=== PATIENT | female | born 1950 | race American Indian/Alaskan Native ===

== ENCOUNTER 2017-03-11 18:41 | Emergency (ER) | payer OTHER ==
[2017-03-11 19:00] VITALS: BP 130/67
[2017-03-11] MEDS ORDERED: Ketorolac 30 MG/ML SDV IM ONE (19:48)
[2017-03-11] MEDS ORDERED: Acetaminophen 325 MG Tab PO ONE (20:13)
[2017-03-11] MEDS ORDERED: Bacitracin Oint 1 GM U/D Packet TOP ONE (20:45)
--- NOTE | 2017-03-11 20:49 | EDM.PDOC ---
ED HPI Trauma - General Chief Complaint: Lower Extremity Injury/Pain Stated Complaint: FELL ON CONCRETE STAIRS,BLEEDING KNEES AND GREER Time Seen by Provider: 03/11/17 19:37 Source: Reports: Patient History Limitations: Reports: No limitations - History of Present Illness INITIAL COMMENTS - FREE TEXT/NARRATIVE: ED with c/o pain to bilateral knees and left greer. Notes catching heel in door at daughters apartment and fell over landing on to concrete. No other injury. did not hit head. Diabetic, not on insulin. On plavix for heart disease. Ambulatory after fall, Occurred When: just prior to arrival Occurred Where: other Method of Injury: fall Severity: moderate Pain/Injury Location: Reports: lower extremity, right, lower extremity, left Consciousness: Reports: no loss of consciousness Associated Symptoms: Reports: no other symptoms Allergies/ADRs: Allergies codeine Allergy (Verified 03/11/17 19:01) Hallucinations diphenhydramine HCl [From Benadryl] Allergy (Verified 03/11/17 19:01) Shaking Penicillins Allergy (Verified 03/11/17 19:01) Rash simvastatin [From Zocor] Allergy (Verified 03/11/17 19:01) Cannot Remember Ivp dye Allergy (Uncoded 07/12/16 15:18) Hives wool Allergy (Uncoded 07/12/16 15:18) Itching Home Medications: Ambulatory Orders Aspirin [Robi Chewable Aspirin] 81 mg PO DAILY 03/18/14 [Confirmed 03/11/17] Calcium Citrate/Vitamin D3 [Calcium Citrate - Vit D Caplet] 1 tab PO BID [Confirmed 03/11/17] Clopidogrel Bisulfate [Clopidogrel] 75 mg PO DAILY 03/18/14 [Confirmed 03/11/17] Insulin Detemir [Levemir] 40 units SQ BEDTIME 03/18/14 [Confirmed 07/12/16] Metformin Sitagliptin 500 mg PO BID 03/18/14 [Confirmed 03/11/17] Metoprolol Succinate [Toprol XL] 50 mg PO BID 03/18/14 [Confirmed 03/11/17] Ramipril [Altace] 5 mg PO DAILY 03/18/14 [Confirmed 03/11/17] Simvastatin [Zocor] 40 mg PO BEDTIME 03/18/14 [Confirmed 03/11/17] Travoprost (Benzalkonium) [Travoprost 0.004% Eye Drop] 1 drop EYEBOTH DAILY 09/21 [Confirmed 03/11/17] Fenofibrate,Micronized [Fenofibrate] 45 mg PO DAILY 03/13/15 [Confirmed 03/11/17 ] Furosemide [Lasix] 20 mg PO DAILY 03/13/15 [Confirmed 03/11/17] Multivitamin with Minerals [Multiple Vitamin] 1 tab PO DAILY 03/13/15 [ Confirmed 03/11/17] Potassium Chloride 10 meq PO DAILY 03/11/17 [Confirmed 03/11/17] Spironolactone [Aldactone] 25 mg PO DAILY 03/11/17 [Confirmed 03/11/17] Past Medical History HEENT History: Reports: Glaucoma, Impaired vision Other HEENT History: wears glasses Cardiovascular History: Reports: Afib, Angina, CAD, High cholesterol, Hypertension, [place] Respiratory History: Reports: None Gastrointestinal History: Reports: GERD Genitourinary History: Reports: None 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 Musculoskeletal History: Reports: None Neurological History: Reports: None Psychiatric History: Reports: None Endocrine/Metabolic History: Reports: Diabetes, type II, IDDM, Obesity/BMI 30+ Hematologic History: Reports: None Immunologic History: Reports: None Oncologic (Cancer) History: Reports: None Dermatologic History: Reports: None - Past Surgical History Cardiovascular Surgical History: Reports: AICD Social & Family History - Family History Family Medical History: Noncontributory - Tobacco Use Smoking Status *Q: Never Smoker Years of Tobacco use: 5 Used Tobacco, but Quit: Yes Month Tobacco Last Used: 0 Second Hand Smoke Exposure: No - Alcohol Use Days Per Week of Alcohol Use: 0 - Recreational Drug Use Recreational Drug Use: No - Living Situation & Occupation Living situation: Reports: with family Occupation: retired Review of Systems - Review of Systems Review Of Systems: ROS reveals no pertinent complaints other than HPI. Trauma Exam - Physical Exam Exam: See Below Exam Limited By: No limitations General Appearance: Reports: alert, mild distress Head: Reports: atraumatic, normocephalic Eyes: bilateral eye: EOMI, PERRL Ears: Reports: normal external exam, normal TMs Nose: Reports: normal inspection Throat/Mouth: Reports: Normal inspection Neck: Reports: non-tender, full range of motion Respiratory Exam: Reports: no respiratory distress Cardiovascular: Reports: normal peripheral pulses GI/Abdominal: Reports: normal bowel sounds, soft Back: Reports: full range of motion Extremities: Reports: normal range of motion, joint effusion, pain with movement , tenderness (bilateral knee), other (left anterior greer swollen and bruised). Denies: no evidence of injury Course - Vital Signs Last Recorded V/S: Last Vital Signs Temp 96.6 F 03/11/17 18:54 Pulse 85 03/11/17 18:54 Resp 18 03/11/17 18:54 BP 130/67 03/11/17 18:54 Pulse Ox 99 03/11/17 18:54 - Orders/Labs/Meds Meds: Medications Discontinued Medications Generic Name Dose Route Start Last Admin Trade Name Freq PRN Reason Stop Dose Admin Acetaminophen 650 mg 03/11/17 20:13 03/11/17 20:27 Tylenol PO 03/11/17 20:14 650 mg NOW ONE Administration Bacitracin 2 dose 03/11/17 20:45 03/11/17 21:20 Bacitracin Oint 1 Gm TOP 03/11/17 20:46 2 dose ONETIME ONE Administration Ketorolac Tromethamine 30 mg 03/11/17 19:48 03/11/17 21:16 Toradol IM 03/11/17 19:49 Not Given ONETIME ONE Departure - Departure Time of Disposition: 20:44 Disposition: Home, Self-Care 01 Condition: fair Clinical Impression: Fall (on) (from) other stairs and steps, initial encounter, Knee pain, bilateral, Contusion of knee, left, Abrasions of multiple sites, Diabetes, Traumatic hematoma of left lower leg Instructions: Knee Sprain, [id number], Knee Pain Forms: ED Department Discharge Additional Instructions: cleanse wounds daily with antibiotic soap bacitracin telfa dressing to wound until healed monitor for signs of infection, warmth redness drainage urgent follow up if infection noted recheck next week in clinitylenol 650 mg every 4-6 hours as needed for discomfort ice to bruised knees and left lower leg
== END 2017-03-11 21:25 | disposition home or self-care (01) ==
LOC: DL.ED 18:41
DX: S80.02XA Contusion of left knee, initial encounter (principal); E11.9 Type 2 diabetes mellitus without complications; S80.12XA Contusion of left lower leg, initial encounter; I25.10 Atherosclerotic heart disease of native coronary artery without angina pectoris; E78.00 Pure hypercholesterolemia, unspecified; I10 Essential (primary) hypertension; I25.2 Old myocardial infarction; K21.9 Gastro-esophageal reflux disease without esophagitis; E66.9 Obesity, unspecified; Z88.5 Allergy status to narcotic agent; Z88.0 Allergy status to penicillin; Z91.041 Radiographic dye allergy status; Z88.8 Allergy status to other drugs, medicaments and biological substances; Z79.82 Long term (current) use of aspirin; Z79.899 Other long term (current) drug therapy; W10.9XXA Fall (on) (from) unspecified stairs and steps, initial encounter
CPT/HCPCS: 73562; 73590; 99283; A9270

== ENCOUNTER 2017-06-05 12:29 | Emergency (ER) | payer OTHER | END 2017-06-05 12:50 | disposition left against medical advice (07) | LOC: DL.ED 12:29 | DX: Z53.21 Procedure and treatment not carried out due to patient leaving prior to being seen by health care provider (principal) ==

== ENCOUNTER 2018-02-27 15:51 | Emergency (ER) | payer OTHER ==
[2018-02-27 16:49] VITALS: BP 116/60
--- NOTE | 2018-02-27 17:50 | EDM.PDOC ---
ED HPI GENERAL MEDICAL PROBLEM - General Chief Complaint: Back Pain or Injury Stated Complaint: FELL, THINKS BROKE RIB Time Seen by Provider: 02/27/18 17:36 Source of Information: Reports: Patient, Family, RN, RN Notes Reviewed History Limitations: Reports: No Limitations - History of Present Illness INITIAL COMMENTS - FREE TEXT/NARRATIVE: Pt presents to ER with c/o fall. Pt stats she fell at noon today. She states she slipped on the ice by her [place]. She states she landed on her left side. Pt denies hitting her head or LOC. She rates the pain 8/10. Onset: Today, Sudden Duration: Constant Location: Reports: Abdomen Quality: Reports: Sharp, Stabbing Severity: Moderate Improves with: Reports: None Worsens with: Reports: None Associated Symptoms: Reports: No Other Symptoms Left Chest Pain Score (Numeric/FACES): 7 - Related Data Allergies Allergy/AdvReac Type Severity Reaction Status Date / Time codeine Allergy Hallucinati Verified 03/11/17 19:01 ons diphenhydramine HCl Allergy Shaking Verified 03/11/17 19:01 [From Benadryl] Penicillins Allergy Rash Verified 03/11/17 19:01 simvastatin [From Zocor] Allergy Cannot Verified 03/11/17 19:01 Remember Ivp dye Allergy Hives Uncoded 07/12/16 15:18 wool Allergy Itching Uncoded 07/12/16 15:18 Home Meds: Home Meds Aspirin [Robi Chewable Aspirin] 81 mg PO DAILY 03/18/14 [History] Calcium Citrate/Vitamin D3 [Calcium Citrate - Vit D Caplet] 1 tab PO BID [History] Clopidogrel Bisulfate [Clopidogrel] 75 mg PO DAILY 03/18/14 [History] Insulin Detemir [Levemir] 40 units SQ BEDTIME 03/18/14 [History] Metformin Sitagliptin 500 mg PO BID 03/18/14 [History] Metoprolol Succinate [Toprol XL] 50 mg PO BID 03/18/14 [History] Ramipril [Altace] 5 mg PO DAILY 03/18/14 [History] Simvastatin [Zocor] 40 mg PO BEDTIME 03/18/14 [History] Travoprost (Benzalkonium) [Travoprost 0.004% Eye Drop] 1 drop EYEBOTH DAILY 09/21 [History] Fenofibrate,Micronized [Fenofibrate] 45 mg PO DAILY 03/13/15 [History] Furosemide [Lasix] 20 mg PO DAILY 03/13/15 [History] Multivitamin with Minerals [Multiple Vitamin] 1 tab PO DAILY 03/13/15 [History] Potassium Chloride 10 meq PO DAILY 03/11/17 [History] Spironolactone [Aldactone] 25 mg PO DAILY 03/11/17 [History] Past Medical History HEENT History: Reports: Glaucoma, Impaired Vision Other HEENT History: wears glasses Cardiovascular History: Reports: Afib, Angina, CAD, High Cholesterol, Hypertension, [place] Respiratory History: Reports: None Gastrointestinal History: Reports: GERD Genitourinary History: Reports: None 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 Musculoskeletal History: Reports: None Neurological History: Reports: None Psychiatric History: Reports: None Endocrine/Metabolic History: Reports: Diabetes, Type II, IDDM, Obesity/BMI 30+ Hematologic History: Reports: None Immunologic History: Reports: None Oncologic (Cancer) History: Reports: None Dermatologic History: Reports: None - Past Surgical History HEENT Surgical History: Reports: Cataract Surgery Social & Family History - Family History Family Medical History: Noncontributory - Tobacco Use Smoking Status *Q: Never Smoker Years of Tobacco use: 5 Used Tobacco, but Quit: Yes Month/Year Tobacco Last Used: 0 Second Hand Smoke Exposure: No - Caffeine Use Caffeine Use: Reports: None - Alcohol Use Days Per Week of Alcohol Use: 0 - Recreational Drug Use Recreational Drug Use: No - Living Situation & Occupation Living situation: Reports: with Family Occupation: Retired ED ROS GENERAL - Review of Systems Review Of Systems: ROS reveals no pertinent complaints other than HPI. ED EXAM, GI/ABD - Physical Exam Exam: See Below Exam Limited By: No Limitations General Appearance: Alert, WD/WN, Mild Distress Eyes: Bilateral: Normal Appearance, EOMI Ears: Normal External Exam, Hearing Grossly Normal Nose: Normal Inspection Throat/Mouth: Normal Inspection, Normal Voice, No Airway Compromise Head: Atraumatic, Normocephalic Neck: Normal Inspection, Supple, Non-Tender, Full Range of Motion Respiratory/Chest: No Respiratory Distress, Lungs Clear, Normal Breath Sounds, No Accessory Muscle Use, Chest Non-Tender, Decreased Breath Sounds (bases bilaterally) Cardiovascular: Normal Peripheral Pulses, Regular Rate, Rhythm, No Edema, No Gallop, No JVD, No Murmur, No Rub GI/Abdominal Exam: Normal Bowel Sounds, Soft, Non-Tender, No Organomegaly, No Distention, No Abnormal Bruit, No Mass, Pelvis Stable (Female) Exam: Deferred Rectal (Female) Exam: Deferred Back Exam: Normal Inspection, Full Range of Motion Extremities: Normal Inspection, Normal Range of Motion, Non-Tender, No Pedal Edema, Normal Capillary Refill Neurological: Alert, Oriented, CN II-XII Intact, Normal Cognition, Normal Gait, Normal Reflexes, No Motor/Sensory Deficits Psychiatric: Normal Affect, Normal Mood Skin Exam: Warm, Dry, Intact, Normal Color, No Rash Lymphatic: No Adenopathy Course - Vital Signs Last Recorded V/S: Last Vital Signs Temp 97.6 F 02/27/18 16:47 Pulse 69 02/27/18 16:47 Resp 16 02/27/18 16:47 BP 116/60 02/27/18 16:47 Pulse Ox 99 02/27/18 16:47 - Orders/Labs/Meds Orders: Active Orders 24 hr Category Date Time Status Incentive Breathing [RT Incentive Spirometry] [RC] Care 02/27/18 17:45 Active ASDIRECTED - Radiology Interpretation Free Text/Narrative:: Left ribs with chest xray: IMPRESSION: 1. No evidence of acute rib fracture. 2. Atelectasis within both lung bases. Thank you for allowing us to participate in the care of your patient. Dictated and Authenticated by: Ajit Tang DO 02/27/2018 5:31 PM Central Time ([place] & [place]) See Rad report Departure - Departure Time of Disposition: 17:46 Disposition: Home, Self-Care 01 Condition: Fair (rib contusion) Clinical Impression: Contusion of rib on left side Qualifiers: Encounter type: initial encounter Qualified Code(s): S20.212A - Contusion of left front wall of thorax, initial encounter - Discharge Information Instructions: Rib Contusion Forms: ED Department Discharge Additional Instructions: May use Tylenol for pain Use Incentive Spirometery as directed Follow up with your primary care facility - My Orders Last 24 Hours: My Active Orders 02/27/18 17:45 Incentive Breathing [RT Incentive Spirometry] [RC] ASDIRECTED - Assessment/Plan Last 24 Hours: My Active Orders 02/27/18 17:45 Incentive Breathing [RT Incentive Spirometry] [RC] ASDIRECTED
== END 2018-02-27 18:17 | disposition home or self-care (01) ==
LOC: DL.ED 15:51
DX: S20.212A Contusion of left front wall of thorax, initial encounter (principal); E78.00 Pure hypercholesterolemia, unspecified; I10 Essential (primary) hypertension; I25.2 Old myocardial infarction; E11.9 Type 2 diabetes mellitus without complications; Z88.5 Allergy status to narcotic agent; Z88.8 Allergy status to other drugs, medicaments and biological substances; Z88.0 Allergy status to penicillin; Z91.041 Radiographic dye allergy status; Z91.048 Other nonmedicinal substance allergy status; Z79.82 Long term (current) use of aspirin; Z79.899 Other long term (current) drug therapy; Z79.4 Long term (current) use of insulin; Z87.891 Personal history of nicotine dependence; W19.XXXA Unspecified fall, initial encounter
CPT/HCPCS: 71101-LT; 94010; 99284

== ENCOUNTER 2018-04-10 14:01 | Emergency (ER) | payer OTHER ==
[2018-04-10 14:13] VITALS: BP 122/62
--- NOTE | 2018-04-10 14:17 | EDM.PDOC ---
ED HPI GENERAL MEDICAL PROBLEM - General Chief Complaint: ENT Problem Stated Complaint: SICK [id number] Time Seen by Provider: 04/10/18 14:16 Source of Information: Reports: Patient, RN, RN Notes Reviewed History Limitations: Reports: No Limitations - History of Present Illness INITIAL COMMENTS - FREE TEXT/NARRATIVE: Pt c/o 2 days of sore throat, and today noticed some white patches in her mouth. Denies fever or chills, cough, N/V or any other Sx's. Onset: Gradual Duration: Day(s): (2) Location: Reports: Other (mouth/throat) Quality: Reports: Ache, Burning Severity: Moderate Improves with: Reports: None Worsens with: Reports: Eating (and swallowing) Associated Symptoms: Reports: No Other Symptoms - Related Data Allergies Allergy/AdvReac Type Severity Reaction Status Date / Time codeine Allergy Hallucinati Verified 04/10/18 14:14 ons diphenhydramine HCl Allergy Shaking Verified 04/10/18 14:14 [From Benadryl] Penicillins Allergy Rash Verified 04/10/18 14:14 simvastatin [From Zocor] Allergy Cannot Verified 04/10/18 14:14 Remember Ivp dye Allergy Hives Uncoded 04/10/18 14:14 wool Allergy Itching Uncoded 04/10/18 14:14 Home Meds: Home Meds Aspirin [Robi Chewable Aspirin] 81 mg PO DAILY 03/18/14 [History] Calcium Citrate/Vitamin D3 [Calcium Citrate - Vit D Caplet] 1 tab PO BID [History] Clopidogrel Bisulfate [Clopidogrel] 75 mg PO DAILY 03/18/14 [History] Insulin Detemir [Levemir] 40 units SQ BEDTIME 03/18/14 [History] Metformin Sitagliptin 500 mg PO BID 03/18/14 [History] Metoprolol Succinate [Toprol XL] 50 mg PO BID 03/18/14 [History] Ramipril [Altace] 5 mg PO DAILY 03/18/14 [History] Simvastatin [Zocor] 40 mg PO BEDTIME 03/18/14 [History] Travoprost (Benzalkonium) [Travoprost 0.004% Eye Drop] 1 drop EYEBOTH DAILY 09/21 [History] Fenofibrate,Micronized [Fenofibrate] 45 mg PO DAILY 05/06/15 [History] Furosemide [Lasix] 20 mg PO DAILY 03/13/15 [History] Multivitamin with Minerals [Multiple Vitamin] 1 tab PO DAILY 03/13/15 [History] Potassium Chloride 10 meq PO DAILY 03/11/17 [History] Spironolactone [Aldactone] 25 mg PO DAILY 03/11/17 [History] Past Medical History HEENT History: Reports: Glaucoma, Impaired Vision Other HEENT History: wears glasses Cardiovascular History: Reports: Afib, Angina, CAD, High Cholesterol, Hypertension, [place] Respiratory History: Reports: None Gastrointestinal History: Reports: GERD Genitourinary History: Reports: None 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 Musculoskeletal History: Reports: None Neurological History: Reports: None Psychiatric History: Reports: None Endocrine/Metabolic History: Reports: Diabetes, Type II, IDDM, Obesity/BMI 30+ Hematologic History: Reports: None Immunologic History: Reports: None Oncologic (Cancer) History: Reports: None Dermatologic History: Reports: None - Past Surgical History HEENT Surgical History: Reports: Cataract Surgery Social & Family History - Family History Family Medical History: Noncontributory - Caffeine Use Caffeine Use: Reports: None - Living Situation & Occupation Living situation: Reports: with Family Occupation: Retired ED ROS ENT - Review of Systems Review Of Systems: ROS reveals no pertinent complaints other than HPI. ED EXAM, ENT - Physical Exam Exam: See Below Exam Limited By: No Limitations General Appearance: Alert, WD/WN, No Apparent Distress Eye Exam: Bilateral Eye: Normal Inspection Ears: Normal External Exam, Normal Canal, Hearing Grossly Normal, Normal TMs Nose: Normal Inspection, Normal Mucousa, No Blood Mouth/Throat: Normal Lips, Pharyngeal Erythema, Other (multiple white plaques and patches on gums, oral membranes and pharynx consistent with candadiasis appearance). No: Normal Teeth (no teeth) Head: Atraumatic, Normocephalic Neck: Normal Inspection, Supple, Non-Tender, Full Range of Motion. No: Lymphadenopathy (L) Respiratory/Chest: No Respiratory Distress, Lungs Clear, Normal Breath Sounds, No Accessory Muscle Use, Chest Non-Tender Cardiovascular: Regular Rate, Rhythm Neurological: Alert, Oriented, CN II-XII Intact, No Motor/Sensory Deficits Psychiatric: Normal Affect, Normal Mood Skin: Warm, Dry, Intact, Normal Color, No Rash Course - Vital Signs Last Recorded V/S: Last Vital Signs Temp 36.2 C 04/10/18 14:10 Pulse 70 04/10/18 14:10 Resp 16 04/10/18 14:10 BP 122/62 04/10/18 14:10 Pulse Ox 100 04/10/18 14:10 - Orders/Labs/Meds Orders: Active Orders 24 hr Category Date Time Status CULTURE STREP A CONFIRMATION [RM] Stat Lab 04/10/18 14:20 Results STREP SCRN A RAPID W CULT CONF [RM] Stat Lab 04/10/18 14:20 Results Labs: Rapid Strep: Negative Departure - Departure Time of Disposition: 14:54 Disposition: Home, Self-Care 01 Condition: Fair Clinical Impression: Candidiasis of mouth and esophagus - Discharge Information Instructions: Oral Thrush, Adult, [id number] Forms: ED Department Discharge Additional Instructions: Rx: Diflucan 100mg Swish, gargle, and spit saltwater four time a day, and after eating or drinking. Follow up in clinic in 7 to 10 days for recheck. - My Orders Last 24 Hours: My Active Orders 04/10/18 14:20 CULTURE STREP A CONFIRMATION [RM] Stat STREP SCRN A RAPID W CULT CONF [RM] Stat - Assessment/Plan Last 24 Hours: My Active Orders 04/10/18 14:20 CULTURE STREP A CONFIRMATION [RM] Stat STREP SCRN A RAPID W CULT CONF [RM] Stat
== END 2018-04-10 15:03 | disposition home or self-care (01) ==
LOC: DL.ED 14:01
DX: B37.0 Candidal stomatitis (principal); B37.81 Candidal esophagitis; E78.00 Pure hypercholesterolemia, unspecified; I10 Essential (primary) hypertension; I25.2 Old myocardial infarction; K21.9 Gastro-esophageal reflux disease without esophagitis; E11.9 Type 2 diabetes mellitus without complications; Z88.5 Allergy status to narcotic agent; Z88.8 Allergy status to other drugs, medicaments and biological substances; Z88.0 Allergy status to penicillin; Z91.041 Radiographic dye allergy status; Z91.048 Other nonmedicinal substance allergy status; Z79.82 Long term (current) use of aspirin; Z79.4 Long term (current) use of insulin; Z79.899 Other long term (current) drug therapy
CPT/HCPCS: 87081; 87430; 99283

== ENCOUNTER 2019-07-01 09:59 | Emergency (ER) | payer OTHER ==
[2019-07-01 10:24] VITALS: BP 130/71
[2019-07-01 11:34] LABS: ANION GAP 16.4; CHLORIDE,CL 98 mmol/L (101-111); SODIUM,NA 130 mmol/L (135-145)
[2019-07-01] MEDS ORDERED: Ondansetron 4 MG/2 ML SDV IV ONE (12:11)
--- NOTE | 2019-07-01 12:40 | EDM.PDOC ---
Scribed by Divina Landers 07/01/19 1240 for Hermilo Valdez PA ED HPI GENERAL MEDICAL PROBLEM - General Chief Complaint: Gastrointestinal Problem Stated Complaint: NAUSEOUS Time Seen by Provider: 07/01/19 10:25 Source of Information: Reports: Patient, Family, RN History Limitations: Reports: No Limitations - History of Present Illness INITIAL COMMENTS - FREE TEXT/NARRATIVE: Patient presents to ER with complaint of nausea. She states she was discharged from [facility] yesterday after having sepsis after a toe amputation. She was here to get her IV med infusion and then presented to ER, after the infusion nurse sent her to ED. She has had nausea since yesterday. She is on no nausea medications. She received shots in the hospital for nausea. Patient is questionably normally independent. She has generalized weakness. She has taken no pills today. Patient was suppose to be admitted to Swing Bed here after discharged from [place], but she refused. Now she would like to be admitted to Swing Bed. Onset: Gradual Duration: Getting Worse Location: Reports: Abdomen (nausea) Quality: Reports: Ache Severity: Moderate Improves with: Reports: None Worsens with: Reports: None Associated Symptoms: Reports: No Other Symptoms Headache Pain Score (Numeric/FACES): 2 - Related Data Allergies Allergy/AdvReac Type Severity Reaction Status Date / Time codeine Allergy Hallucinati Verified 07/01/19 10:21 ons diphenhydramine HCl Allergy Shaking Verified 07/01/19 10:21 [From Benadryl] Penicillins Allergy Rash Verified 07/01/19 10:21 simvastatin [From Zocor] Allergy Cannot Verified 07/01/19 10:21 Remember Ivp dye Allergy Hives Uncoded 07/01/19 10:21 wool Allergy Itching Uncoded 07/01/19 10:21 Home Meds: Home Meds Aspirin [Robi Chewable Aspirin] 81 mg PO DAILY 03/18/14 [History] Calcium Citrate/Vitamin D3 [Calcium Citrate - Vit D Caplet] 1 tab PO BID [History] Clopidogrel Bisulfate [Clopidogrel] 75 mg PO BEDTIME 03/18/14 [History] Insulin Detemir [Levemir] 30 units SQ BEDTIME 03/18/14 [History] Metoprolol Succinate [Toprol XL] 50 mg PO BID 03/18/14 [History] Ramipril [Altace] 5 mg PO DAILY 03/18/14 [History] Simvastatin [Zocor] 40 mg PO BEDTIME 03/18/14 [History] Travoprost (Benzalkonium) [Travoprost 0.004% Eye Drop] 1 drop EYEBOTH DAILY 09/21 [History] Fenofibrate,Micronized [Fenofibrate] 48 mg PO DAILY 03/13/15 [History] Furosemide [Lasix] 20 mg PO DAILY 03/13/15 [History] Multivitamin with Minerals [Multiple Vitamin] 1 tab PO DAILY 03/13/15 [History] Potassium Chloride 10 meq PO DAILY 03/11/17 [History] Spironolactone [Aldactone] 25 mg PO DAILY 03/11/17 [History] Acetaminophen [Tylenol] 325 mg PO Q6H PRN 04/22/19 [History] Albuterol [Proventil HFA] 2 puff INH Q4H PRN 04/22/19 [History] Ascorbate Calcium [Vitamin C] 500 mg PO BID 04/22/19 [History] Calcium Carbonate [Tums] 300 mg PO DAILY PRN 04/22/19 [History] [place]/Min Oil/Luz/Wool Alcoh [Eucerin Creme] 0 gm TOP BID PRN 04/22/19 [ History] Estradiol [Estrace Vaginal] 1 applic VAG .TWICEWEEKLY 04/22/19 [History] Estrogens, Conjugated [Premarin Vaginal Crm] 42.5 gm .XX .TWICEWEEKLY PRN [History] Famotidine [Pepcid] 20 mg PO BID 04/22/19 [History] Fish Oil/[place]-3 Fatty Acids [Fish Oil 1,000 MG] 1 each PO DAILY 04/22/19 [ History] Magnesium Oxide 400 mg PO DAILY 04/22/19 [History] Saxagliptin HCl [Onglyza] 5 mg PO DAILY 04/22/19 [History] Triamcinolone Acetonide [Triamcinolone Acetonide 0.5%] 15 gm .XX BID PRN [History] Past Medical History HEENT History: Reports: Glaucoma, Impaired Vision Other HEENT History: wears glasses Cardiovascular History: Reports: Afib, Angina, CAD, High Cholesterol, Hypertension, [place] Respiratory History: Reports: None Gastrointestinal History: Reports: GERD Genitourinary History: Reports: None 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: Reports: None Musculoskeletal History: Reports: Amputation, Other (See Below) Other Musculoskeletal History: right great toe Neurological History: Reports: None Psychiatric History: Reports: None Endocrine/Metabolic History: Reports: Diabetes, Type II, IDDM, Obesity/BMI 30+ Hematologic History: Reports: None Immunologic History: Reports: None Oncologic (Cancer) History: Reports: None Dermatologic History: Reports: None - Infectious Disease History Infectious Disease History: Reports: None - Past Surgical History HEENT Surgical History: Reports: Cataract Surgery Musculoskeletal Surgical History: Reports: Amputation Social & Family History - Family History Family Medical History: Noncontributory - Tobacco Use Smoking Status *Q: Never Smoker - Caffeine Use Caffeine Use: Reports: Coffee - Recreational Drug Use Recreational Drug Use: No - Living Situation & Occupation Living situation: Reports: with Family Occupation: Retired ED ROS GENERAL - Review of Systems Review Of Systems: ROS reveals no pertinent complaints other than HPI. ED EXAM, GI/ABD - Physical Exam Exam: See Below General Appearance: Other (weakness) Eyes: Bilateral: Normal Appearance Ears: Normal External Exam, Normal Canal, Hearing Grossly Normal, Normal TMs Nose: Normal Inspection, Normal Mucosa, No Blood Throat/Mouth: Normal Inspection, Normal Lips, Normal Teeth, Normal Gums, Normal Oropharynx, Normal Voice, No Airway Compromise Head: Atraumatic, Normocephalic Neck: Normal Inspection, Supple, Non-Tender, Full Range of Motion Respiratory/Chest: No Respiratory Distress, Lungs Clear, Normal Breath Sounds, No Accessory Muscle Use, Chest Non-Tender Cardiovascular: Normal Peripheral Pulses, Regular Rate, Rhythm, No Edema, No Gallop, No JVD, No Murmur, No Rub GI/Abdominal Exam: Normal Bowel Sounds, Soft, Non-Tender, No Organomegaly, No Distention, No Abnormal Bruit, No Mass, Pelvis Stable (Female) Exam: Deferred Rectal (Female) Exam: Deferred Back Exam: Normal Inspection, Full Range of Motion, NT Extremities: Normal Inspection, Normal Range of Motion, Non-Tender, Normal Capillary Refill, No Pedal Edema Neurological: Alert, Oriented, CN II-XII Intact, Normal Cognition, Normal Gait, Normal Reflexes, No Motor/Sensory Deficits Psychiatric: Normal Affect, Normal Mood Skin Exam: Warm, Dry, Intact, Normal Color, No Rash Lymphatic: No Adenopathy Course - Vital Signs Last Recorded V/S: Last Vital Signs Temp 36.2 C 07/01/19 10:21 Pulse 98 07/01/19 10:21 Resp 20 07/01/19 10:21 BP 130/71 07/01/19 10:21 Pulse Ox 100 07/01/19 10:21 - Orders/Labs/Meds Orders: Active Orders 24 hr Category Date Time Status UA RFX CHARO AND CULT IF INDIC [URIN] Urgent Lab 07/01/19 10:34 Ordered Labs: Laboratory Tests 07/01/19 07/01/19 07/01/19 Range/Units 11:00 11:00 11:00 WBC 9.9 (5.0-10.0) 10^3/uL RBC 3.10 L (4.2-5.4) 10^6/uL Hgb 9.0 L D (12.0-16.0) g/dL Hct 28.0 L (37.0-47.0) % MCV 90.3 (80-100) fL MCH 29.0 (27.0-34.0) pg MCHC 32.1 L (33.0-35.0) g/dL Plt Count 246 (150-450) 10^3/uL Neut % (Auto) 79.9 H (42.2-75.2) % Lymph % (Auto) 11.1 L (20.5-50.1) % [place] % (Auto) 8.7 H (2-8) % Eos % (Auto) 0.1 L (1.0-3.0) % Baso % (Auto) 0.2 (0.0-1.0) % Add Manual Diff Yes Neutrophils % (Manual) 85 H (42-75) % Band Neutrophils % 1 % Lymphocytes % (Manual) 11 L (20-50) % Monocytes % (Manual) 3 (2-8) % Nucleated RBCs 2 /100WBC Sodium 130 L (135-145) mmol/L Potassium 4.4 (3.6-5.0) mmol/L Chloride 98 L (101-111) mmol/L Carbon Dioxide 20.0 L (21.0-31.0) mmol/L Anion Gap 16.4 BUN 20 H (7-18) mg/dL Creatinine 0.7 (0.6-1.3) mg/dL Est Cr Clr Drug Dosing 64.58 mL/min Estimated GFR (MDRD) > 60 BUN/Creatinine Ratio 28.57 Glucose 229 H (74-105) mg/dL Lactic Acid 2.4 H (0.5-2.2) mmol/L Calcium 8.5 (8.4-10.2) mg/dl Total Bilirubin 0.9 (0.2-1.0) mg/dL AST 1922 H (10-42) IU/L ALT 1487 H (10-60) IU/L Alkaline Phosphatase 192 H (42-121) IU/L Total Protein 6.6 L (6.7-8.2) g/dl Albumin 2.8 L (3.2-5.5) g/dl Globulin 3.8 Albumin/Globulin Ratio 0.74 Meds: Medications Discontinued Medications Generic Name Dose Route Start Last Admin Trade Name Freq PRN Reason Stop Dose Admin Ondansetron HCl 4 mg 07/01/19 12:11 07/01/19 12:22 Zofran IV 07/01/19 12:12 4 mg ONETIME ONE Administration Departure - Departure Time of Disposition: 12:37 Disposition: DC/Tfer to [facility] 02 Condition: Serious Clinical Impression: Elevated LFTs - Discharge Information *PRESCRIPTION DRUG MONITORING PROGRAM REVIEWED*: Not Applicable *COPY OF PRESCRIPTION DRUG MONITORING REPORT IN PATIENT MARIBEL: Not Applicable Forms: Interfacility Transfer EMTALA Care Plan Goals: Discussed the history, examination and lab results with Dr. Moore. Dr. Moore accepted the patient for continued evaluation and further management. The patient will be transported by [facility]. - My Orders Last 24 Hours: My Active Orders 07/01/19 10:34 UA RFX CHARO AND CULT IF INDIC [URIN] Urgent - Assessment/Plan Last 24 Hours: My Active Orders 07/01/19 10:34 UA RFX CHARO AND CULT IF INDIC [URIN] Urgent I have read and agree with the documentation that has been completed regarding this visit. By signing this record, I attest that the documentation was completed in my physical presence and is an accurate record of the encounter.
== END 2019-07-01 13:00 ==
LOC: DL.ED 09:59
DX: R79.89 Other specified abnormal findings of blood chemistry (principal); E11.9 Type 2 diabetes mellitus without complications; E66.9 Obesity, unspecified; I10 Essential (primary) hypertension; I25.10 Atherosclerotic heart disease of native coronary artery without angina pectoris; I48.91 Unspecified atrial fibrillation; I25.2 Old myocardial infarction; Z88.5 Allergy status to narcotic agent; Z91.041 Radiographic dye allergy status; Z88.0 Allergy status to penicillin; Z88.8 Allergy status to other drugs, medicaments and biological substances; Z79.82 Long term (current) use of aspirin; Z79.4 Long term (current) use of insulin; Z79.899 Other long term (current) drug therapy; Z98.49 Cataract extraction status, unspecified eye
CPT/HCPCS: 36415; 80053; 83605; 85025; 96374; 99285; J2405

== ENCOUNTER 2019-07-05 09:38 | Inpatient (IN) | payer MEDICARE, OTHER ==
[2019-07-05] MEDS ORDERED: Glucagon,Human Recombinant 1 MG Vial IM PRN (12:26)
[2019-07-05] MEDS ORDERED: Ondansetron 4 MG Tab.DIS PO PRN (12:26)
[2019-07-05] MEDS ORDERED: Promethazine 25 MG/ML SDV IM PRN (12:26)
[2019-07-05] MEDS ORDERED: 50% Dextrose in Water 50 ML Syringe IVPUSH PRN (12:26)
[2019-07-05] MEDS ORDERED: Promethazine 25 MG Tab PO PRN (12:26)
[2019-07-05] MEDS ORDERED: Ibuprofen 600 MG Tab PO PRN (12:26)
[2019-07-05] MEDS ORDERED: Ondansetron 4 MG/2 ML SDV IVPUSH PRN (12:26)
--- NOTE | 2019-07-05 12:38 | PCM.HP ---
H&P History of Present Illness - General Date of Service: 07/05/19 Admit Problem/Dx: Admission Diagnosis/Problem Admission Diagnosis/Problem Osteomyelitis of foot Source of Information: Patient, Old Records, Provider History Limitations: Reports: No Limitations - History of Present Illness Initial Comments - Free Text/Narative: Ariadna Ambriz,69 y.o.femalewith medical history significant for recurrent osteomyelitis of the right big toe, CAD status post coronary stenting , cardiomyopathy, status post AICD placement, agitation, anemia, chronic heart failure, diabetes, GERD, and obesity who is being admitted to [facility] bed for alf antibiotic therapy and physical and occupational therapies. Patient reports that she is doing okay. She reports 5/10 pain in her right foot. States she still feels weak compared to her baseline. She denies fevers, chills, chest pain, shortness of breath, n/v/d/c, melena, dysuria, hematuria, or any new symptoms. She reports that she was taking 500 mg of tylenol as often as every 2 hours due to pain prior to her hospitalization at [facility]. She denies tobacco, alcohol, or illicit drug use. - Related Data Allergies/Adverse Reactions: Allergies Allergy/AdvReac Type Severity Reaction Status Date / Time codeine Allergy Hallucinati Verified 07/05/19 10:57 ons diphenhydramine HCl Allergy Shaking Verified 07/05/19 10:57 [From Benadryl] Penicillins Allergy Rash Verified 07/05/19 10:57 simvastatin [From Zocor] Allergy Cannot Verified 07/05/19 10:57 Remember Ivp dye Allergy Hives Uncoded 07/01/19 10:21 wool Allergy Itching Uncoded 07/01/19 10:21 Home Medications: Home Meds Calcium Citrate/Vitamin D3 [Calcium Citrate - Vit D Caplet] 1 tab PO BID [History] Clopidogrel Bisulfate [Clopidogrel] 75 mg PO DAILY 03/18/14 [History] Insulin Detemir [Levemir] 30 units SQ BEDTIME 03/18/14 [History] Metoprolol Succinate [Toprol XL] 50 mg PO BID 03/18/14 [History] Simvastatin [Zocor] 40 mg PO BEDTIME 03/18/14 [History] Travoprost (Benzalkonium) [Travoprost 0.004% Eye Drop] 1 drop EYEBOTH BEDTIME [History] Furosemide [Lasix] 40 mg PO DAILY 03/13/15 [History] Multivitamin with Minerals [Multiple Vitamin] 1 tab PO DAILY 03/13/15 [History] Spironolactone [Aldactone] 25 mg PO DAILY 03/11/17 [History] Ascorbate Calcium [Vitamin C] 500 mg PO BID 04/22/19 [History] [place]/Min Oil/Luz/Wool Alcoh [Eucerin Creme] 0 gm TOP ASDIRECTED PRN 04/22/19 [History] Famotidine [Pepcid] 20 mg PO BID 04/22/19 [History] Fish Oil/[place]-3 Fatty Acids [Fish Oil 1,000 MG] 1 gm PO DAILY 04/22/19 [History ] Magnesium Oxide 400 mg PO .HS 04/22/19 [History] Saxagliptin HCl [Onglyza] 5 mg PO DAILY 04/22/19 [History] Triamcinolone Acetonide [Triamcinolone Acetonide 0.5%] 0 gm TOP ASDIRECTED PRN 04/22/19 [History] Aspirin [Halfprin] 81 mg PO DAILY 07/05/19 [History] Calcium Carbonate [Calcium] 500 mg PO ASDIRECTED PRN 07/05/19 [History] Fenofibrate Nanocrystallized [Fenofibrate] 48 mg PO DAILY 07/05/19 [History] Ramipril 5 mg PO .HS 07/05/19 [History] Past Medical History HEENT History: Reports: Glaucoma, Impaired Vision Other HEENT History: wears glasses Cardiovascular History: Reports: Afib, Angina, CAD, High Cholesterol, Hypertension, [place] Respiratory History: Reports: None Gastrointestinal History: Reports: GERD Genitourinary History: Reports: None 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 Musculoskeletal History: Reports: Amputation, Other (See Below) Other Musculoskeletal History: right great toe Neurological History: Reports: None Psychiatric History: Reports: None Endocrine/Metabolic History: Reports: Diabetes, Type II, IDDM, Obesity/BMI 30+ Hematologic History: Reports: None Immunologic History: Reports: None Oncologic (Cancer) History: Reports: None Dermatologic History: Reports: Cellulitis - Infectious Disease History Infectious Disease History: Reports: Other (See Below) Other Infectious Disease History: Acute Hepatitis - Past Surgical History HEENT Surgical History: Reports: Cataract Surgery Musculoskeletal Surgical History: Reports: Amputation Social & Family History - Family History Family Medical History: Noncontributory - Tobacco Use Smoking Status *Q: Former Smoker Years of Tobacco use: 4 Packs/Tins Daily: 0.2 Used Tobacco, but Quit: Yes Month/Year Tobacco Last Used: 1979 - Caffeine Use Caffeine Use: Reports: Coffee - Recreational Drug Use Recreational Drug Use: No - Living Situation & Occupation Living situation: Reports: with Family Occupation: Retired H&P Review of Systems - Review of Systems: Review Of Systems: ROS reveals no pertinent complaints other than HPI. Exam - Exam Exam: See Below - Vital Signs Weight: 192 lb 9.6 oz - Exam General: Alert, Oriented, Cooperative, Mild Distress HEENT: Conjunctiva Clear, EOMI, Hearing Intact, Mucosa Moist & [place], Pupils Equal, Pupils Reactive Neck: Supple, Trachea Midline Lungs: Clear to Auscultation, Normal Respiratory Effort Cardiovascular: Regular Rate, Regular Rhythm GI/Abdominal Exam: Normal Bowel Sounds, Soft, Non-Tender, No Distention Extremities: No Pedal Edema, Leg Pain (Right foot tenderness to palpation. ), Other (Right foot with dressing in place. ) Skin: Warm, Dry, Intact Neuro Extensive - Mental Status: Alert, Oriented x3, Normal Mood/Affect, Normal Cognition, Memory Intact Psychiatric: Alert, Normal Affect, Normal Mood - Problem List (1) Bacteremia due to methicillin susceptible Staphylococcus aureus (MSSA) SNOMED Code(s): 474024388 ICD Code: R78.81 - BACTEREMIA Status: Acute Current Visit: Yes (2) CHF, Congestive heart failure SNOMED Code(s): 35410616 ICD Code: I50.9 - HEART FAILURE, UNSPECIFIED Status: Acute Current Visit : No (3) Diabetes mellitus type 2 SNOMED Code(s): 04499746 ICD Code: E11.9 - TYPE 2 DIABETES MELLITUS WITHOUT COMPLICATIONS Status: Acute Current Visit: No (4) Elevated LFTs SNOMED Code(s): 964411499, 235931603 ICD Code: R94.5 - ABNORMAL RESULTS OF LIVER FUNCTION STUDIES Status: Acute Current Visit: No (5) HTN, Benign essential hypertension SNOMED Code(s): 0869194 ICD Code: I10 - ESSENTIAL (PRIMARY) HYPERTENSION Status: Acute Current Visit: No Problem List Initiated/Reviewed/Updated: Yes Orders Last 24hrs: Active Orders 24 hr Category Date Time Status Patient Status [ADT] Routine ADT 07/05/19 12:26 Ordered Diabetes Education [RC] Click to Edit Care 07/05/19 12:26 Ordered Intake and Output [RC] QSHIFT Care 07/05/19 12:30 Ordered Notify Provider [RC] PRN Care 07/05/19 12:26 Ordered Oxygen Therapy [RC] PRN Care 07/05/19 12:26 Ordered Up ad Fatmata [RC] ASDIRECTED Care 07/05/19 12:26 Ordered Vital Signs [RC] QSHIFT Care 07/05/19 12:26 Ordered 2 Gram Sodium Diet [DIET] Diet 07/05/19 Lunch Ordered Consistent Carbohydrate Diet [DIET] Diet 07/05/19 Lunch Ordered HEPATIC FUNCTION PANEL,HFP [CHEM] DAILY Lab 07/06/19 05:00 Ordered HEPATIC FUNCTION PANEL,HFP [CHEM] DAILY Lab 07/07/19 05:00 Ordered HEPATIC FUNCTION PANEL,HFP [CHEM] DAILY Lab 07/08/19 05:00 Ordered HEPATIC FUNCTION PANEL,HFP [CHEM] DAILY Lab 07/09/19 05:00 Ordered Dextrose 50% in Water Med 07/05/19 12:26 Ordered 25 ml IVPUSH ASDIRECTED PRN Enoxaparin [Lovenox] Med 07/06/19 09:00 Ordered 40 mg SUBCUT DAILY Glucagon,Human Recombinant [GlucaGen] Med 07/05/19 12:26 Ordered 1 mg IM ONETIME PRN Ibuprofen [Motrin] Med 07/05/19 12:26 Ordered 600 mg PO Q8H PRN Ondansetron [Zofran ODT] Med 07/05/19 12:26 Ordered 4 mg PO Q6H PRN Ondansetron [Zofran] Med 07/05/19 12:26 Ordered 4 mg IVPUSH Q6H PRN Promethazine [Phenergan] Med 07/05/19 12:26 Ordered 25 mg PO Q6H PRN Promethazine [Phenergan] Med 07/05/19 12:26 Ordered 6.25 mg IM Q6H PRN Resuscitation Status Routine Resus Stat 07/05/19 12:26 Ordered Medication Orders Dextrose/Water (Dextrose 50% In Water) 25 ml IVPUSH ASDIRECTED PRN PRN Reason: Hypoglycemia Enoxaparin Sodium (Lovenox) 40 mg SUBCUT DAILY [facility] Glucagon (Glucagen) 1 mg IM ONETIME PRN PRN Reason: Hypoglycemia Ibuprofen (Motrin) 600 mg PO Q8H PRN PRN Reason: Pain (mild 1-3) Ondansetron HCl (Zofran Odt) 4 mg PO Q6H PRN PRN Reason: nausea, able to take PO Ondansetron HCl (Zofran) 4 mg IVPUSH Q6H PRN PRN Reason: Nausea/Vomiting Promethazine HCl (Phenergan) 25 mg PO Q6H PRN PRN Reason: nausea, able to take PO Promethazine HCl (Phenergan) 6.25 mg IM Q6H PRN PRN Reason: Nausea/Vomiting Assessment/Plan Comment:: #Osteomyelitis of right lower extremity/first toe amputation stump #MSSA bacteremia: - Continue ertapenem. - Needs total of 6 weeks of Abx from 06/27/19 #Generalized weakness: - PT/OT] #Acute hepatitis: likely due to tylenol overuse. - LFTs improving per records from [facility] - Trend LFTs - Cautious use of tylenol, if needed. #Right foot pain: - Tramadol for pain management #CHF: appears euvolemic - Lasix - Continue aldactone, toprol, lisinopril - Monitor renal function #DM II: - Continue levemir - SSI with hypoglycemia protocol. DVT PPx: INR was 1.9 today; start lovenox tomorrow GI PPx: Carb consistent and low Na diet Code status: Full Code
[2019-07-05] MEDS ORDERED: Isopropyl Myristate/Mineral Oil/Water Lotion 240 ML Bottle TOP PRN (13:02)
[2019-07-05] MEDS ORDERED: traMADol 50 MG Tab PO PRN (13:20)
[2019-07-05] MEDS: Insulin Lispro 100 Units/ML 3 ML Vial SUBCUT SCH ×3 (17:33→21:11)
[2019-07-05] MEDS: Calcium Carbonate/Vitamin D3 1250 MG-200 Unit Tab PO SCH (20:57)
[2019-07-05] MEDS: Ramipril 5 MG Cap PO SCH (20:57)
[2019-07-05] MEDS: Metoprolol Succinate 50 MG Tab.ER PO SCH (20:58)
[2019-07-05] MEDS: Famotidine 20 MG Tab PO SCH (20:58)
[2019-07-05] MEDS: Ascorbic Acid 500 MG Tab PO SCH (20:59)
[2019-07-05] MEDS: MAGNESIUM OXIDE 400 MG PO SCH (20:59)
[2019-07-05] MEDS ORDERED: INSULIN DETEMIR 30 UNIT SQ SCH (21:00)
[2019-07-05] MEDS: Simvastatin 40 MG Tab PO SCH (21:00)
[2019-07-05] MEDS: Ertapenem 1 GM in Sodium Chloride 0.9% 50 ML IV SCH (21:01)
[2019-07-06] MEDS: Insulin Lispro 100 Units/ML 3 ML Vial SUBCUT SCH ×4 (08:33→21:18)
[2019-07-06] MEDS: Furosemide 40 MG Tab PO SCH (09:00)
[2019-07-06] MEDS ORDERED: Ertapenem 1 GM in Sodium Chloride 0.9% 50 ML IV SCH (09:00)
[2019-07-06] MEDS ORDERED: Non-Formulary Medication 1 Each (Fenofibrate Nanocrystallized [Fenofibrate] 48 MG) PO SCH (09:00)
[2019-07-06] MEDS: Enoxaparin 40 MG/0.4 ML Syringe SUBCUT SCH (09:01)
[2019-07-06] MEDS: Multivitamins, Therapeutic with Minerals Tab PO SCH (09:01)
[2019-07-06] MEDS: Aspirin 81 MG Tab.EC PO SCH (09:02)
[2019-07-06] MEDS: Metoprolol Succinate 50 MG Tab.ER PO SCH ×2 (09:02→20:28)
[2019-07-06] MEDS: Calcium Carbonate/Vitamin D3 1250 MG-200 Unit Tab PO SCH ×2 (09:03→20:26)
[2019-07-06] MEDS: Ascorbic Acid 500 MG Tab PO SCH ×2 (09:03→20:25)
[2019-07-06] MEDS: Spironolactone 25 MG Tab PO SCH (09:03)
[2019-07-06] MEDS: Clopidogrel 75 MG Tab PO SCH (09:03)
[2019-07-06] MEDS: Famotidine 20 MG Tab PO SCH ×2 (09:03→20:26)
[2019-07-06] MEDS: FATTY ACIDS PO SCH (09:08)
[2019-07-06] MEDS: OMEGA PO SCH (09:08)
[2019-07-06] MEDS: FISH OIL PO SCH (09:08)
[2019-07-06] MEDS ORDERED: Triamcinolone Acetonide 0.1% Crm 15 GM Tube TOP PRN (11:00)
[2019-07-06] MEDS ORDERED: [UNRECOGNIZED DRUG - REMARK] TOP PRN (15:20)
[2019-07-06] MEDS: [UNRECOGNIZED DRUG - REMARK] EYEBOTH SCH ×2 (19:21→20:25)
[2019-07-06] MEDS: MAGNESIUM OXIDE 400 MG PO SCH (20:25)
[2019-07-06] MEDS: Simvastatin 40 MG Tab PO SCH (20:26)
[2019-07-06] MEDS: Ramipril 5 MG Cap PO SCH (20:27)
[2019-07-06] MEDS: Ertapenem 1 GM in Sodium Chloride 0.9% 50 ML IV SCH (20:30)
[2019-07-06] MEDS ORDERED: Latanoprost 0.005% Ophth Soln 2.5 ML Bottle EYEBOTH SCH (21:00)
[2019-07-06] MEDS: Insulin Glarg,Human.Rec.Analog 100 UNIT/ML ML SUBCUT SCH (21:19)
[2019-07-06] MEDS: Calcium Carbonate 500 MG Tab.Chew PO PRN (21:31)
[2019-07-07] MEDS: OMEGA PO SCH (08:42)
[2019-07-07] MEDS: FATTY ACIDS PO SCH (08:42)
[2019-07-07] MEDS: FISH OIL PO SCH (08:42)
[2019-07-07] MEDS: Aspirin 81 MG Tab.EC PO SCH (08:43)
[2019-07-07] MEDS: Furosemide 40 MG Tab PO SCH (08:43)
[2019-07-07] MEDS: Ascorbic Acid 500 MG Tab PO SCH ×2 (08:44→20:26)
[2019-07-07] MEDS: Calcium Carbonate/Vitamin D3 1250 MG-200 Unit Tab PO SCH ×2 (08:44→20:28)
[2019-07-07] MEDS: Clopidogrel 75 MG Tab PO SCH (08:44)
[2019-07-07] MEDS: Spironolactone 25 MG Tab PO SCH (08:46)
[2019-07-07] MEDS: Famotidine 20 MG Tab PO SCH ×2 (08:46→20:26)
[2019-07-07] MEDS: Multivitamins, Therapeutic with Minerals Tab PO SCH (08:46)
[2019-07-07] MEDS: Insulin Lispro 100 Units/ML 3 ML Vial SUBCUT SCH ×4 (08:47→20:55)
[2019-07-07] MEDS: Enoxaparin 40 MG/0.4 ML Syringe SUBCUT SCH (08:49)
[2019-07-07] MEDS: Metoprolol Succinate 50 MG Tab.ER PO SCH ×2 (08:52→20:27)
--- NOTE | 2019-07-07 11:20 | PCM.PN ---
- General Info Date of Service: 07/07/19 - Review of Systems General: Reports: Malaise HEENT: Reports: No Symptoms Pulmonary: Reports: No Symptoms Cardiovascular: Reports: No Symptoms, Edema Gastrointestinal: Reports: Decreased Appetite - Patient Data Vitals - Most Recent: Last Vital Signs Temp 36.8 C 07/07/19 08:00 Pulse 73 07/07/19 08:52 Resp 20 07/07/19 08:00 BP 112/59 L 07/07/19 08:52 Pulse Ox 97 07/07/19 08:00 Weight - Most Recent: 87.362 kg I&O - Last 24 Hours: Intake & Output 07/06/19 07/07/19 07/07/19 22:59 06:59 14:59 Intake Total 547 Output Total 400 Balance 147 Lab Results Last 24 Hours: Laboratory Results - last 24 hr 07/06/19 07/06/19 07/07/19 Range/Units 11:38 21:04 06:23 POC Glucose 165 H 274 H (83-110) mg/dl Total Bilirubin 0.6 (0.2-1.0) mg/dL Direct Bilirubin 0.3 H (0.0-0.2) mg/dL Indirect Bilirubin 0.3 AST 64 H (10-42) IU/L ALT 408 H (10-60) IU/L Alkaline Phosphatase 144 H (42-121) IU/L Total Protein 5.9 L (6.7-8.2) g/dl Albumin 2.3 L (3.2-5.5) g/dl Globulin 3.6 Albumin/Globulin Ratio 0.64 07/07/19 Range/Units 07:52 POC Glucose 221 H (83-110) mg/dl Total Bilirubin (0.2-1.0) mg/dL Direct Bilirubin (0.0-0.2) mg/dL Indirect Bilirubin AST (10-42) IU/L ALT (10-60) IU/L Alkaline Phosphatase (42-121) IU/L Total Protein (6.7-8.2) g/dl Albumin (3.2-5.5) g/dl Globulin Albumin/Globulin Ratio Med Orders - Current: Current Medications Ascorbic Acid (Vitamin C) 500 mg PO BID [facility] Last Admin: 07/07/19 08:44 Dose: 500 mg Aspirin (Halfprin) 81 mg PO DAILY [facility] Last Admin: 07/07/19 08:43 Dose: 81 mg Calcium Carbonate (Calcium Carbonate/Vitamin D 1250 Mg-200 Unit) 1 tab PO BID [facility] Last Admin: 07/07/19 08:44 Dose: 1 tab Calcium Carbonate/Glycine (Tums) 500 mg PO ASDIRECTED PRN PRN Reason: Heartburn Last Admin: 07/06/19 21:31 Dose: 1,000 mg Clopidogrel Bisulfate (Plavix) 75 mg PO DAILY [facility] Last Admin: 07/07/19 08:44 Dose: 75 mg Dextrose/Water (Dextrose 50% In Water) 25 ml IVPUSH ASDIRECTED PRN PRN Reason: Hypoglycemia Emollient Ointment (Hydrocerin Lotion) 0 ml TOP ASDIRECTED PRN PRN Reason: Itching Enoxaparin Sodium (Lovenox) 40 mg SUBCUT DAILY [facility] Last Admin: 07/07/19 08:49 Dose: 40 mg Famotidine (Pepcid) 20 mg PO BID [facility] Last Admin: 07/07/19 08:46 Dose: 20 mg Furosemide (Lasix) 40 mg PO DAILY [facility] Last Admin: 07/07/19 08:43 Dose: 40 mg Glucagon (Glucagen) 1 mg IM ONETIME PRN PRN Reason: Hypoglycemia Ertapenem 1 gm/ Sodium (Chloride) 50 mls @ 100 mls/hr IV BEDTIME [facility] Stop: 07/18/19 21:29 Last Admin: 07/06/19 20:30 Dose: 100 mls/hr Insulin Glargine (Lantus) 30 unit SUBCUT BEDTIME [facility] Last Admin: 07/06/19 21:19 Dose: 30 units Insulin Human Lispro (Humalog) 0 unit SUBCUT 0700,1100,1700,2100 [facility]; Protocol Last Admin: 07/07/19 08:47 Dose: 4 units Metoprolol Succinate (Toprol Xl) 50 mg PO BID [facility] Last Admin: 07/07/19 08:52 Dose: 50 mg Multivitamins/Minerals (Vitamins And Minerals) 1 tab PO DAILY [facility] Last Admin: 07/07/19 08:46 Dose: 1 tab Non-Form Travoprost 0.004% Eye Drop Own Med 1 drop EYEBOTH BEDTIME [facility] Last Admin: 07/06/19 20:25 Dose: 1 drop Non-Form Triamcinolone 0.5% Cream Own Med 0 each TOP ASDIRECTED PRN PRN Reason: Inflammation Ondansetron HCl (Zofran Odt) 4 mg PO Q6H PRN PRN Reason: nausea, able to take PO Ondansetron HCl (Zofran) 4 mg IVPUSH Q6H PRN PRN Reason: Nausea/Vomiting Fish Oil/[place]-3 Fatty Acids [Fish Oil 500 Mg] Pt's Own Med 2 each PO DAILY [facility] Last Admin: 07/07/19 08:42 Dose: 2 each Magnesium Oxide 400 (Mg Pt's Own Med) 0 each PO BEDTIME [facility] Last Admin: 07/06/19 20:25 Dose: 1 each Promethazine HCl (Phenergan) 25 mg PO Q6H PRN PRN Reason: nausea, able to take PO Promethazine HCl (Phenergan) 6.25 mg IM Q6H PRN PRN Reason: Nausea/Vomiting Ramipril (Altace) 2.5 mg PO BEDTIME [facility] Simvastatin (Zocor) 40 mg PO BEDTIME [facility] Last Admin: 07/06/19 20:26 Dose: 40 mg Spironolactone (Aldactone) 25 mg PO DAILY [facility] Last Admin: 07/07/19 08:46 Dose: 25 mg Tramadol HCl (Ultram) 50 mg PO Q6H PRN PRN Reason: Pain Discontinued Medications Ibuprofen (Motrin) 600 mg PO Q8H PRN PRN Reason: Pain (mild 1-3) Non-Formulary Medication (Insulin Detemir [Levemir]) 30 units SQ BEDTIME [facility] Ramipril (Altace) 5 mg PO BEDTIME [facility] Last Admin: 07/06/19 20:27 Dose: 5 mg Triamcinolone Acetonide (Triamcinolone Acetonide 0.1% Crm) 0 gm TOP ASDIRECTED PRN PRN Reason: Inflammation - Exam General: Alert, Oriented, Cooperative Neck: Supple Lungs: Clear to Auscultation Cardiovascular: Regular Rate Back Exam: Normal Inspection, Full Range of Motion Extremities: Pedal Edema - Problem List Review Problem List Initiated/Reviewed/Updated: Yes - My Orders Last 24 Hours: My Active Orders 07/06/19 11:02 Communication Order [RC] DAILY 07/07/19 10:58 Communication Order [RC] ROUTINE 07/07/19 11:02 Central Line Assessment [RC] 07/07/19 21:00 Ramipril [Altace] 2.5 mg PO BEDTIME 07/10/19 09:35 CMP [COMPREHENSIVE METABOLIC PN,CMP] [CHEM] Routine 07/10/19 09:37 INR,PT,PROTHROMBIN TIME [COAG] Routine 07/13/19 06:00 ALANINE AMINOTRANSFERASE,ALT [CHEM] Routine CBC WITH AUTO DIFF [HEME] Routine CREATININE W/GFR [CHEM] Routine CRP [C-REACTIVE PROTEIN] [CHEM] Routine ESR [SEDIMENTATION RATE MANUAL] [HEME] Routine - Plan Plan:: #Osteomyelitis of right lower extremity/first toe amputation stump #MSSA bacteremia: - Continue ertapenem. - Needs total of 6 weeks of Abx from 06/27/19 #Generalized weakness: - PT/OT] #Acute hepatitis: likely due to tylenol overuse. - LFTs improving per records from [facility] - Trend LFTs - Cautious use of tylenol, if needed. #Right foot pain: - Tramadol for pain management #CHF: appears euvolemic - Increase lasix to 60 mg daily - Continue aldactone, toprol, lisinopril - Monitor renal function #DM II: - Continue levemir - SSI with hypoglycemia protocol. Code status: Full Code
[2019-07-07] MEDS: Ertapenem 1 GM in Sodium Chloride 0.9% 50 ML IV SCH (17:10)
[2019-07-07] MEDS: Sodium Chloride 0.9% 10 ML Syringe FLUSH PRN ×2 (17:11→20:43)
[2019-07-07] MEDS: Simvastatin 40 MG Tab PO SCH (20:28)
[2019-07-07] MEDS: MAGNESIUM OXIDE 400 MG PO SCH (20:29)
[2019-07-07] MEDS: [UNRECOGNIZED DRUG - REMARK] EYEBOTH SCH (20:31)
[2019-07-07] MEDS: Insulin Glarg,Human.Rec.Analog 100 UNIT/ML ML SUBCUT SCH (20:56)
[2019-07-07] MEDS ORDERED: Ramipril 5 MG Cap PO SCH (21:00)
[2019-07-08] MEDS: Famotidine 20 MG Tab PO SCH ×2 (08:06→22:32)
[2019-07-08] MEDS: Clopidogrel 75 MG Tab PO SCH (08:06)
[2019-07-08] MEDS: Spironolactone 25 MG Tab PO SCH (08:06)
[2019-07-08] MEDS: Calcium Carbonate/Vitamin D3 1250 MG-200 Unit Tab PO SCH ×2 (08:06→22:36)
[2019-07-08] MEDS: Aspirin 81 MG Tab.EC PO SCH (08:07)
[2019-07-08] MEDS: Metoprolol Succinate 50 MG Tab.ER PO SCH ×2 (08:07→22:37)
[2019-07-08] MEDS: Multivitamins, Therapeutic with Minerals Tab PO SCH (08:07)
[2019-07-08] MEDS: Ascorbic Acid 500 MG Tab PO SCH ×2 (08:08→22:32)
[2019-07-08] MEDS: Furosemide 40 MG Tab PO SCH (08:08)
[2019-07-08] MEDS: FISH OIL PO SCH (08:09)
[2019-07-08] MEDS: OMEGA PO SCH (08:09)
[2019-07-08] MEDS: FATTY ACIDS PO SCH (08:09)
[2019-07-08] MEDS: Enoxaparin 40 MG/0.4 ML Syringe SUBCUT SCH (08:10)
[2019-07-08] MEDS: Insulin Lispro 100 Units/ML 3 ML Vial SUBCUT SCH ×4 (09:38→22:49)
[2019-07-08] MEDS: Calcium Carbonate 500 MG Tab.Chew PO PRN (11:13)
[2019-07-08] MEDS: Ertapenem 1 GM in Sodium Chloride 0.9% 50 ML IV SCH (16:04)
[2019-07-08] MEDS ORDERED: Insulin Lispro 100 Units/ML 3 ML Vial SUBCUT ONE (22:25)
[2019-07-08] MEDS: Insulin Glarg,Human.Rec.Analog 100 UNIT/ML ML SUBCUT SCH (22:27)
[2019-07-08] MEDS: [UNRECOGNIZED DRUG - REMARK] EYEBOTH SCH (22:29)
[2019-07-08] MEDS: MAGNESIUM OXIDE 400 MG PO SCH (22:29)
[2019-07-08] MEDS: Simvastatin 40 MG Tab PO SCH (22:30)
[2019-07-08] MEDS: Melatonin 3 MG Tab PO SCH (22:31)
[2019-07-08] MEDS: Sodium Chloride 0.9% 10 ML Syringe FLUSH PRN (22:38)
[2019-07-09] MEDS: Enoxaparin 40 MG/0.4 ML Syringe SUBCUT SCH (08:11)
[2019-07-09] MEDS: Spironolactone 25 MG Tab PO SCH (08:12)
[2019-07-09] MEDS: Clopidogrel 75 MG Tab PO SCH (08:12)
[2019-07-09] MEDS: Calcium Carbonate/Vitamin D3 1250 MG-200 Unit Tab PO SCH ×2 (08:12→20:49)
[2019-07-09] MEDS: Aspirin 81 MG Tab.EC PO SCH (08:12)
[2019-07-09] MEDS: Metoprolol Succinate 50 MG Tab.ER PO SCH ×2 (08:12→20:50)
[2019-07-09] MEDS: Famotidine 20 MG Tab PO SCH ×2 (08:12→20:48)
[2019-07-09] MEDS: Multivitamins, Therapeutic with Minerals Tab PO SCH (08:12)
[2019-07-09] MEDS: Ascorbic Acid 500 MG Tab PO SCH ×2 (08:13→20:49)
[2019-07-09] MEDS: Furosemide 40 MG Tab PO SCH (08:13)
[2019-07-09] MEDS: FISH OIL PO SCH (08:18)
[2019-07-09] MEDS: FATTY ACIDS PO SCH (08:18)
[2019-07-09] MEDS: OMEGA PO SCH (08:18)
[2019-07-09] MEDS ORDERED: Metolazone 2.5 MG Tab PO SCH (09:15)
[2019-07-09] MEDS: Insulin Lispro 100 Units/ML 3 ML Vial SUBCUT SCH ×4 (10:13→20:56)
[2019-07-09] MEDS: Metolazone 2.5 MG Tab PO SCH (11:17)
[2019-07-09] MEDS: Ertapenem 1 GM in Sodium Chloride 0.9% 50 ML IV SCH (16:11)
[2019-07-09] MEDS: [UNRECOGNIZED DRUG - REMARK] EYEBOTH SCH (20:45)
[2019-07-09] MEDS: MAGNESIUM OXIDE 400 MG PO SCH (20:45)
[2019-07-09] MEDS: Simvastatin 40 MG Tab PO SCH (20:49)
[2019-07-09] MEDS: Melatonin 3 MG Tab PO SCH (20:49)
[2019-07-09] MEDS: Insulin Glarg,Human.Rec.Analog 100 UNIT/ML ML SUBCUT SCH (20:58)
[2019-07-10] MEDS: Calcium Carbonate 500 MG Tab.Chew PO PRN (02:28)
[2019-07-10 07:30] LABS: ANION GAP 12.7; CHLORIDE,CL 97 mmol/L (101-111); SODIUM,NA 135 mmol/L (135-145)
[2019-07-10] MEDS: Insulin Lispro 100 Units/ML 3 ML Vial SUBCUT SCH ×4 (08:29→21:08)
[2019-07-10] MEDS: Multivitamins, Therapeutic with Minerals Tab PO SCH (08:54)
[2019-07-10] MEDS: Metoprolol Succinate 50 MG Tab.ER PO SCH ×2 (08:54→20:07)
[2019-07-10] MEDS: Clopidogrel 75 MG Tab PO SCH (08:54)
[2019-07-10] MEDS: Metolazone 2.5 MG Tab PO SCH (08:54)
[2019-07-10] MEDS: Aspirin 81 MG Tab.EC PO SCH (08:54)
[2019-07-10] MEDS: Calcium Carbonate/Vitamin D3 1250 MG-200 Unit Tab PO SCH ×2 (08:54→20:06)
[2019-07-10] MEDS: Famotidine 20 MG Tab PO SCH ×2 (08:54→20:07)
[2019-07-10] MEDS: Ascorbic Acid 500 MG Tab PO SCH ×2 (08:54→20:07)
[2019-07-10] MEDS: Spironolactone 25 MG Tab PO SCH (08:55)
[2019-07-10] MEDS: Furosemide 40 MG Tab PO SCH (08:55)
[2019-07-10] MEDS: FISH OIL PO SCH (09:03)
[2019-07-10] MEDS: Enoxaparin 40 MG/0.4 ML Syringe SUBCUT SCH (09:03)
[2019-07-10] MEDS: FATTY ACIDS PO SCH (09:03)
[2019-07-10] MEDS: OMEGA PO SCH (09:03)
[2019-07-10] MEDS: Ertapenem 1 GM in Sodium Chloride 0.9% 50 ML IV SCH (16:01)
[2019-07-10] MEDS: Melatonin 3 MG Tab PO SCH (20:06)
[2019-07-10] MEDS: Simvastatin 40 MG Tab PO SCH (20:06)
[2019-07-10] MEDS: MAGNESIUM OXIDE 400 MG PO SCH (20:08)
[2019-07-10] MEDS: [UNRECOGNIZED DRUG - REMARK] EYEBOTH SCH (20:08)
[2019-07-10] MEDS: Insulin Glarg,Human.Rec.Analog 100 UNIT/ML ML SUBCUT SCH (21:08)
[2019-07-11] MEDS: Insulin Lispro 100 Units/ML 3 ML Vial SUBCUT SCH ×4 (09:01→21:54)
[2019-07-11] MEDS: Metoprolol Succinate 50 MG Tab.ER PO SCH ×2 (09:02→21:44)
[2019-07-11] MEDS: Clopidogrel 75 MG Tab PO SCH (09:03)
[2019-07-11] MEDS: Ascorbic Acid 500 MG Tab PO SCH ×2 (09:03→21:44)
[2019-07-11] MEDS: Multivitamins, Therapeutic with Minerals Tab PO SCH (09:03)
[2019-07-11] MEDS: Furosemide 40 MG Tab PO SCH (09:03)
[2019-07-11] MEDS: Spironolactone 25 MG Tab PO SCH (09:03)
[2019-07-11] MEDS: Aspirin 81 MG Tab.EC PO SCH (09:03)
[2019-07-11] MEDS: Calcium Carbonate/Vitamin D3 1250 MG-200 Unit Tab PO SCH ×2 (09:03→21:43)
[2019-07-11] MEDS: Metolazone 2.5 MG Tab PO SCH (09:03)
[2019-07-11] MEDS: Famotidine 20 MG Tab PO SCH ×2 (09:03→21:43)
[2019-07-11] MEDS: FATTY ACIDS PO SCH (09:04)
[2019-07-11] MEDS: Enoxaparin 40 MG/0.4 ML Syringe SUBCUT SCH (09:04)
[2019-07-11] MEDS: OMEGA PO SCH (09:04)
[2019-07-11] MEDS: FISH OIL PO SCH (09:04)
[2019-07-11] MEDS: Ertapenem 1 GM in Sodium Chloride 0.9% 50 ML IV SCH (17:01)
[2019-07-11] MEDS: Simvastatin 40 MG Tab PO SCH (21:44)
[2019-07-11] MEDS: Melatonin 3 MG Tab PO SCH (21:45)
[2019-07-11] MEDS: MAGNESIUM OXIDE 400 MG PO SCH (21:46)
[2019-07-11] MEDS: [UNRECOGNIZED DRUG - REMARK] EYEBOTH SCH (21:47)
[2019-07-11] MEDS: Insulin Glarg,Human.Rec.Analog 100 UNIT/ML ML SUBCUT SCH (21:53)
[2019-07-12 06:49] LABS: ANION GAP 12.5; CHLORIDE,CL 96 mmol/L (101-111); SODIUM,NA 134 mmol/L (135-145)
[2019-07-12] MEDS: Insulin Lispro 100 Units/ML 3 ML Vial SUBCUT SCH ×2 (08:10→12:20)
[2019-07-12 08:17] VITALS: BP 116/56
[2019-07-12] MEDS: Ascorbic Acid 500 MG Tab PO SCH (08:55)
[2019-07-12] MEDS: Calcium Carbonate/Vitamin D3 1250 MG-200 Unit Tab PO SCH (08:55)
[2019-07-12] MEDS: Clopidogrel 75 MG Tab PO SCH (08:55)
[2019-07-12] MEDS: Famotidine 20 MG Tab PO SCH (08:56)
[2019-07-12] MEDS: Aspirin 81 MG Tab.EC PO SCH (08:56)
[2019-07-12] MEDS: Spironolactone 25 MG Tab PO SCH (08:56)
[2019-07-12] MEDS: Multivitamins, Therapeutic with Minerals Tab PO SCH (08:56)
[2019-07-12] MEDS: Metolazone 2.5 MG Tab PO SCH (08:56)
[2019-07-12] MEDS: Furosemide 40 MG Tab PO SCH (08:57)
[2019-07-12] MEDS: Metoprolol Succinate 50 MG Tab.ER PO SCH (08:57)
[2019-07-12] MEDS: Enoxaparin 40 MG/0.4 ML Syringe SUBCUT SCH (08:58)
[2019-07-12] MEDS: OMEGA PO SCH (08:59)
[2019-07-12] MEDS: FISH OIL PO SCH (08:59)
[2019-07-12] MEDS: FATTY ACIDS PO SCH (08:59)
[2019-07-12] MEDS: Ertapenem 1 GM in Sodium Chloride 0.9% 50 ML IV SCH (12:22)
[2019-07-12] MEDS: Sodium Chloride 0.9% 10 ML Syringe FLUSH PRN (12:23)
[2019-07-12] MEDS ORDERED: Potassium Chloride 10 MEQ Tab.ER PO ONE (12:32)
--- NOTE | 2019-07-12 12:37 | PCM.DCSUM1 ---
Discharge Summary - Hospital Course Free Text/Narrative:: 69-year-old lady with a history of cardiomyopathy, diabetes, obesity, coronary artery disease. The patient was admitted to acute care with an osteomyelitis of the right big toe. #Osteomyelitis of right lower extremity/first toe amputation stump #MSSA bacteremia: - Continue ertapenem. - Needs total of 6 weeks of Abx from 06/27/19 will continue as out pt with ABx has appt for wound recheck with #Generalized weakness: - did well with PT/OT #Acute hepatitis: likely due to tylenol overuse. - LFTs improving per records from [facility] - Trend LFTs - Cautious use of tylenol, if needed. #Right foot pain: - Tramadol for pain management #CHF: appears euvolemic - cont lasix , added metolazone - Continue aldactone, toprol, lisinopril - Monitor renal function periodically #DM II: - Continue levemir Diagnosis: Stroke: No - Discharge Data Discharge Date: 07/12/19 Discharge Disposition: Home, Self-Care 01 Condition: Good - Patient Summary/Data Consults: Consultations 07/05/19 13:23 OT Evaluation and Treatment [CONS] Routine PT Evaluation and Treatment [CONS] Routine - Discharge Plan *PRESCRIPTION DRUG MONITORING PROGRAM REVIEWED*: Not Applicable *COPY OF PRESCRIPTION DRUG MONITORING REPORT IN PATIENT MARIBEL: Not Applicable Prescriptions/Med Rec: metOLazone [Zaroxolyn] 5 mg PO DAILY #30 tablet Ramipril [Altace] 2.5 mg PO BEDTIME #30 cap Home Medications: Home Meds Calcium Citrate/Vitamin D3 [Calcium Citrate - Vit D Caplet] 1 tab PO BID [History] Clopidogrel Bisulfate [Clopidogrel] 75 mg PO DAILY 03/18/14 [History] Insulin Detemir [Levemir] 30 units SQ BEDTIME 03/18/14 [History] Metoprolol Succinate [Toprol XL] 50 mg PO BID 03/18/14 [History] Simvastatin [Zocor] 40 mg PO BEDTIME 03/18/14 [History] Travoprost (Benzalkonium) [Travoprost 0.004% Eye Drop] 1 drop EYEBOTH BEDTIME [History] Furosemide [Lasix] 40 mg PO DAILY 03/13/15 [History] Multivitamin with Minerals [Multiple Vitamin] 1 tab PO DAILY 03/13/15 [History] Spironolactone [Aldactone] 25 mg PO DAILY 03/11/17 [History] Ascorbate Calcium [Vitamin C] 500 mg PO BID 04/22/19 [History] [place]/Min Oil/Luz/Wool Alcoh [Eucerin Creme] 0 gm TOP ASDIRECTED PRN 04/22/19 [History] Famotidine [Pepcid] 20 mg PO BID 04/22/19 [History] Fish Oil/Centuria-3 Fatty Acids [Fish Oil 1,000 MG] 1 gm PO DAILY 04/22/19 [History ] Magnesium Oxide 400 mg PO .HS 04/22/19 [History] Saxagliptin HCl [Onglyza] 5 mg PO DAILY 04/22/19 [History] Triamcinolone Acetonide [Triamcinolone Acetonide 0.5%] 0 gm TOP ASDIRECTED PRN 04/22/19 [History] Aspirin [Halfprin] 81 mg PO DAILY 07/05/19 [History] Calcium Carbonate [Calcium] 500 mg PO ASDIRECTED PRN 07/05/19 [History] Fenofibrate Nanocrystallized [Fenofibrate] 48 mg PO DAILY 07/05/19 [History] Ertapenem [INVanz] 1 gm IV DAILY@1700 vial 07/12/19 [Rx] Ramipril [Altace] 2.5 mg PO BEDTIME #30 cap 07/12/19 [Rx] metOLazone [Zaroxolyn] 5 mg PO DAILY #30 tablet 07/12/19 [Rx] Patient Handouts: Melatonin oral solid dosage forms, Metolazone tablets - Discharge Summary/Plan Comment DC Time >30 min.: No - General Info Date of Service: 07/12/19 Functional Status: Reports: Pain Controlled, Tolerating Diet - Review of Systems General: Denies: Fever, Weakness Cardiovascular: Denies: Chest Pain Gastrointestinal: Denies: Abdominal Pain - Patient Data Vitals - Most Recent: Last Vital Signs Temp 36.6 C 07/12/19 08:16 Pulse 78 07/12/19 08:57 Resp 18 07/12/19 08:16 BP 116/56 L 07/12/19 08:57 Pulse Ox 96 07/12/19 08:16 Weight - Most Recent: 86.818 kg I&O - Last 24 hours: Intake & Output 07/11/19 07/12/19 07/12/19 22:59 06:59 14:59 Intake Total 172 200 240 Balance 172 200 240 Lab Results - Last 24 hrs: Laboratory Results - last 24 hr 07/11/19 07/11/19 07/12/19 Range/Units 16:41 21:23 06:18 Sodium 134 L (135-145) mmol/L Potassium 3.5 L (3.6-5.0) mmol/L Chloride 96 L (101-111) mmol/L Carbon Dioxide 29.0 (21.0-31.0) mmol/L Anion Gap 12.5 BUN 13 (7-18) mg/dL Creatinine 0.6 (0.6-1.3) mg/dL Est Cr Clr Drug Dosing 75.34 mL/min Estimated GFR (MDRD) > 60 Glucose 165 H (74-105) mg/dL POC Glucose 396 H 316 H (83-110) mg/dl Calcium 8.4 (8.4-10.2) mg/dl 07/12/19 07/12/19 Range/Units 07:42 11:38 Sodium (135-145) mmol/L Potassium (3.6-5.0) mmol/L Chloride (101-111) mmol/L Carbon Dioxide (21.0-31.0) mmol/L Anion Gap BUN (7-18) mg/dL Creatinine (0.6-1.3) mg/dL Est Cr Clr Drug Dosing mL/min Estimated GFR (MDRD) Glucose (74-105) mg/dL POC Glucose 150 H 201 H (83-110) mg/dl Calcium (8.4-10.2) mg/dl Med Orders - Current: Current Medications Ascorbic Acid (Vitamin C) 500 mg PO BID [facility] Last Admin: 07/12/19 08:55 Dose: 500 mg Aspirin (Halfprin) 81 mg PO DAILY [facility] Last Admin: 07/12/19 08:56 Dose: 81 mg Calcium Carbonate (Calcium Carbonate/Vitamin D 1250 Mg-200 Unit) 1 tab PO BID [facility] Last Admin: 07/12/19 08:55 Dose: 1 tab Calcium Carbonate/Glycine (Tums) 500 mg PO ASDIRECTED PRN PRN Reason: Heartburn Last Admin: 07/10/19 02:28 Dose: 500 mg Clopidogrel Bisulfate (Plavix) 75 mg PO DAILY [facility] Last Admin: 07/12/19 08:55 Dose: 75 mg Dextrose/Water (Dextrose 50% In Water) 25 ml IVPUSH ASDIRECTED PRN PRN Reason: Hypoglycemia Emollient Ointment (Hydrocerin Lotion) 0 ml TOP ASDIRECTED PRN PRN Reason: Itching Last Admin: 07/12/19 09:01 Dose: 1 applic Enoxaparin Sodium (Lovenox) 40 mg SUBCUT DAILY [facility] Last Admin: 07/12/19 08:58 Dose: 40 mg Famotidine (Pepcid) 20 mg PO BID [facility] Last Admin: 07/12/19 08:56 Dose: 20 mg Furosemide (Lasix) 60 mg PO DAILY [facility] Last Admin: 07/12/19 08:57 Dose: 60 mg Glucagon (Glucagen) 1 mg IM ONETIME PRN PRN Reason: Hypoglycemia Ertapenem 1 gm/ Sodium (Chloride) 50 mls @ 100 mls/hr IV DAILY@1700 [facility] Stop: 07/18/19 17:29 Last Admin: 07/12/19 12:22 Dose: 100 mls/hr Insulin Glargine (Lantus) 30 unit SUBCUT BEDTIME [facility] Last Admin: 07/11/19 21:53 Dose: 30 units Insulin Human Lispro (Humalog) 0 unit SUBCUT 0700,1100,1700,2100 [facility]; Protocol Last Admin: 07/12/19 12:20 Dose: 6 units Metolazone (Zaroxolyn) 5 mg PO DAILY [facility] Last Admin: 07/12/19 08:56 Dose: 5 mg Metoprolol Succinate (Toprol Xl) 50 mg PO BID [facility] Last Admin: 07/12/19 08:57 Dose: 50 mg Multivitamins/Minerals (Vitamins And Minerals) 1 tab PO DAILY [facility] Last Admin: 07/12/19 08:56 Dose: 1 tab Non-Form Travoprost 0.004% Eye Drop Own Med 1 drop EYEBOTH BEDTIME [facility] Last Admin: 07/11/19 21:47 Dose: 1 drop Non-Form Triamcinolone 0.5% Cream Own Med 0 each TOP ASDIRECTED PRN PRN Reason: Inflammation Last Admin: 07/12/19 09:01 Dose: 1 each Ondansetron HCl (Zofran Odt) 4 mg PO Q6H PRN PRN Reason: nausea, able to take PO Ondansetron HCl (Zofran) 4 mg IVPUSH Q6H PRN PRN Reason: Nausea/Vomiting Fish Oil/Centuria-3 Fatty Acids [Fish Oil 500 Mg] Pt's Own Med 2 each PO DAILY [facility] Last Admin: 07/12/19 08:59 Dose: 2 each Magnesium Oxide 400 (Mg Pt's Own Med) 0 each PO BEDTIME [facility] Last Admin: 07/11/19 21:46 Dose: 400 each Potassium Chloride (Klor-Con 10) 20 meq PO ONETIME ONE Stop: 07/12/19 12:33 Promethazine HCl (Phenergan) 25 mg PO Q6H PRN PRN Reason: nausea, able to take PO Promethazine HCl (Phenergan) 6.25 mg IM Q6H PRN PRN Reason: Nausea/Vomiting Ramipril (Altace) 2.5 mg PO BEDTIME [facility] Last Admin: 07/11/19 21:45 Dose: 2.5 mg Simvastatin (Zocor) 40 mg PO BEDTIME [facility] Last Admin: 07/11/19 21:44 Dose: 40 mg Sodium Chloride (Saline Flush) 10 ml FLUSH ASDIRECTED PRN PRN Reason: Keep Vein Open Last Admin: 07/12/19 12:23 Dose: 10 ml Spironolactone (Aldactone) 25 mg PO DAILY [facility] Last Admin: 07/12/19 08:56 Dose: 25 mg Tramadol HCl (Ultram) 50 mg PO Q6H PRN PRN Reason: Pain Discontinued Medications Furosemide (Lasix) 40 mg PO DAILY [facility] Last Admin: 07/07/19 08:43 Dose: 40 mg Ertapenem 1 gm/ Sodium (Chloride) 50 mls @ 100 mls/hr IV BEDTIME [facility] Stop: 07/18/19 21:29 Last Admin: 07/06/19 20:30 Dose: 100 mls/hr Ibuprofen (Motrin) 600 mg PO Q8H PRN PRN Reason: Pain (mild 1-3) Insulin Human Lispro (Humalog) 18 unit SUBCUT ONETIME ONE Stop: 07/08/19 22:26 Last Admin: 07/08/19 22:46 Dose: 18 units Melatonin (Melatonin) 3 mg PO BEDTIME [facility] Last Admin: 07/11/19 21:45 Dose: Not Given Metolazone (Zaroxolyn) 2.5 mg PO DAILY [facility] Non-Formulary Medication (Insulin Detemir [Levemir]) 30 units SQ BEDTIME [facility] Ramipril (Altace) 5 mg PO BEDTIME [facility] Last Admin: 07/06/19 20:27 Dose: 5 mg Triamcinolone Acetonide (Triamcinolone Acetonide 0.1% Crm) 0 gm TOP ASDIRECTED PRN PRN Reason: Inflammation - Exam General: Reports: Alert, Oriented Lungs: Reports: Clear to Auscultation Cardiovascular: Reports: Regular Rate, Regular Rhythm GI/Abdominal Exam: Normal Bowel Sounds, Soft, Non-Tender Extremities: No Pedal Edema, Other (surgical wound with an area of dehiscence)
== END 2019-07-12 14:50 | disposition home or self-care (01) | DRG 638 ==
LOC: DL.MS 11:57 → UNDOADMIN 11:57 → DL.MS 12:26
PROVIDERS: ADMIT Internal Medicine; ATTEND Internal Medicine
DX: E11.69 Type 2 diabetes mellitus with other specified complication (principal); M86.8X7 Other osteomyelitis, ankle and foot; I42.9 Cardiomyopathy, unspecified; R78.81 Bacteremia; B17.9 Acute viral hepatitis, unspecified; E66.9 Obesity, unspecified; R53.1 Weakness; B95.61 Methicillin susceptible Staphylococcus aureus infection as the cause of diseases classified elsewhere; K21.9 Gastro-esophageal reflux disease without esophagitis; H54.7 Unspecified visual loss; I48.91 Unspecified atrial fibrillation; E78.00 Pure hypercholesterolemia, unspecified; I25.10 Atherosclerotic heart disease of native coronary artery without angina pectoris; I11.0 Hypertensive heart disease with heart failure; I50.9 Heart failure, unspecified; R94.5 Abnormal results of liver function studies; Z89.411 Acquired absence of right great toe; Z79.82 Long term (current) use of aspirin; Z79.4 Long term (current) use of insulin; Z79.899 Other long term (current) drug therapy; Z95.5 Presence of coronary angioplasty implant and graft; Z95.810 Presence of automatic (implantable) cardiac defibrillator; Z88.5 Allergy status to narcotic agent; Z88.8 Allergy status to other drugs, medicaments and biological substances; Z88.0 Allergy status to penicillin; Z91.041 Radiographic dye allergy status; Z91.09 Other allergy status, other than to drugs and biological substances; I25.2 Old myocardial infarction; Z87.891 Personal history of nicotine dependence; Z68.32 Body mass index [BMI] 32.0-32.9, adult
CPT/HCPCS: 36415; 80048; 80053; 80076; 82962; 85610; 97110-GO; 97110-GP; 97116-GP; 97161-GP; 97165-GO; 97530-GO; A9270-GY; J1335; J1650; J1815; J1815-GY; J7050

== ENCOUNTER 2019-07-20 12:25 | Emergency (ER) | payer OTHER, MEDICARE ==
--- NOTE | 2019-07-20 12:27 | EDM.PDOC ---
"ED HPI GENERAL MEDICAL PROBLEM - General Chief Complaint: Trauma Stated Complaint: FALL OUTSIDE [facility] Time Seen by Provider: 07/20/19 12:27 Source of Information: Reports: Patient, Old Records, Provider (Dr. Toby Hammonds) , RN, RN Notes Reviewed History Limitations: Reports: No Limitations - History of Present Illness INITIAL COMMENTS - FREE TEXT/NARRATIVE: Pt sent from [facility] by wheelchair with report from Dr. Toby Hammonds that pt was leaving the walk-in clinic when she slipped and fell to the ground hitting her head and injuring her left ribs. Pt denies LOC, N/V, neck pain, or any other injury(s). Pt is on Plavix and Aspirin daily. TRAUMA NOTES: Pre-arrival TRAUMA notification from clinic at 1222HRS. ARRIVAL TIME: 1225HRS C-COLLAR STATUS: none (not indicated) SPINAL BOARD/IMMOBILIZATION STATUS: (none) GCS on arrival: 15 Onset: Today, Sudden Duration: Constant Location: Reports: Head, Chest (left ribs) Quality: Reports: Ache Severity: Mild Improves with: Reports: None Worsens with: Reports: None Associated Symptoms: Reports: No Other Symptoms - Related Data Allergies Allergy/AdvReac Type Severity Reaction Status Date / Time codeine Allergy Hallucinati Verified 07/13/19 16:46 ons diphenhydramine HCl Allergy Shaking Verified 07/13/19 16:46 [From Benadryl] Penicillins Allergy Rash Verified 07/13/19 16:46 simvastatin [From Zocor] Allergy Cannot Verified 07/13/19 16:46 Remember Ivp dye Allergy Hives Uncoded 07/13/19 16:46 wool Allergy Itching Uncoded 07/13/19 16:46 Home Meds: Home Meds Calcium Citrate/Vitamin D3 [Calcium Citrate - Vit D Caplet] 1 tab PO BID [History] Clopidogrel Bisulfate [Clopidogrel] 75 mg PO DAILY 03/18/14 [History] Insulin Detemir [Levemir] 30 units SQ BEDTIME 03/18/14 [History] Metoprolol Succinate [Toprol XL] 50 mg PO BID 03/18/14 [History] Simvastatin [Zocor] 40 mg PO BEDTIME 03/18/14 [History] Travoprost (Benzalkonium) [Travoprost 0.004% Eye Drop] 1 drop EYEBOTH BEDTIME [History] Furosemide [Lasix] 40 mg PO DAILY 03/13/15 [History] Multivitamin with Minerals [Multiple Vitamin] 1 tab PO DAILY 03/13/15 [History] Spironolactone [Aldactone] 25 mg PO DAILY 03/11/17 [History] Ascorbate Calcium [Vitamin C] 500 mg PO BID 04/22/19 [History] [place]/Min Oil/Luz/Wool Alcoh [Eucerin Creme] 0 gm TOP ASDIRECTED PRN 04/22/19 [History] Famotidine [Pepcid] 20 mg PO BID 04/22/19 [History] Fish Oil/[place]-3 Fatty Acids [Fish Oil 1,000 MG] 1 gm PO DAILY 04/22/19 [History ] Magnesium Oxide 400 mg PO .HS 04/22/19 [History] Saxagliptin HCl [Onglyza] 5 mg PO DAILY 04/22/19 [History] Triamcinolone Acetonide [Triamcinolone Acetonide 0.5%] 0 gm TOP ASDIRECTED PRN 04/22/19 [History] Aspirin [Halfprin] 81 mg PO DAILY 07/05/19 [History] Calcium Carbonate [Calcium] 500 mg PO ASDIRECTED PRN 07/05/19 [History] Fenofibrate Nanocrystallized [Fenofibrate] 48 mg PO DAILY 07/05/19 [History] Ertapenem [INVanz] 1 gm IV DAILY@1700 vial 07/12/19 [Rx] Ramipril [Altace] 2.5 mg PO BEDTIME #30 cap 07/12/19 [Rx] metOLazone [Zaroxolyn] 5 mg PO DAILY #30 tablet 07/12/19 [Rx] Past Medical History HEENT History: Reports: Glaucoma, Impaired Vision Other HEENT History: wears glasses Cardiovascular History: Reports: Afib, Angina, CAD, High Cholesterol, Hypertension, [place] Respiratory History: Reports: None Gastrointestinal History: Reports: GERD Genitourinary History: Reports: None REFLESHER History: Reports: None Musculoskeletal History: Reports: Amputation, Other (See Below) Other Musculoskeletal History: right great toe Neurological History: Reports: None Psychiatric History: Reports: None Endocrine/Metabolic History: Reports: Diabetes, Type II, IDDM, Obesity/BMI 30+ Hematologic History: Reports: None Immunologic History: Reports: None Oncologic (Cancer) History: Reports: None Dermatologic History: Reports: Cellulitis - Infectious Disease History Infectious Disease History: Reports: Other (See Below) Other Infectious Disease History: Acute Hepatitis - Past Surgical History HEENT Surgical History: Reports: Cataract Surgery Musculoskeletal Surgical History: Reports: Amputation Social & Family History - Family History Family Medical History: Noncontributory - Caffeine Use Caffeine Use: Reports: Coffee - Living Situation & Occupation Living situation: Reports: with Family Occupation: Retired Review of Systems - Review of Systems Review Of Systems: ROS reveals no pertinent complaints other than HPI. ED EXAM, GENERAL - Physical Exam Exam: See Below Free Text/Narrative:: PRIMARY TRAUMA SURVEY (1225hrs) AIRWAY: Patent nasal and oral airways. BREATHING: Spontaneous respirations with clear B/L breath sounds. CIRCULATION: Heart RRR, intact distal pulses at all four extremities, no cyanosis. DEFORMITY/DISABILITY: No long bone deformities. No active bleeding. No neuro. deficits. Abdomen benign to exam. Pelvis stable. Left chest wall tenderness, no crepitus or flail chest. EXPOSURE: Skin warm, and dry. SECONDARY TRAUMA SURVEY FOLLOWS (1255hrs) Exam Limited By: No Limitations General Appearance: Alert, WD/WN, No Apparent Distress Eye Exam: Bilateral Eye: Normal Inspection Ears: Normal External Exam, Normal Canal, Hearing Grossly Normal, Normal TMs, Other (No hemotympanum) Course - Orders/Labs/Meds Labs: Lab results from 07/20/19 from [facility] reviewed by me. - Radiology Interpretation Free Text/Narrative:: [facility] - [facility] Final Radiology Report Call: [phone] assistance Online chat: [email or web address] Name: SANDEEP GARCIA Age: 69Years F Date: 07/20/2019 SSN: -- : 1950 Study: XR RIBS 2 VIEWS LEFT Requesting Physician: MACKENZIE TUCKER Images: 2 Addl Studies: Provided Clinical History: fall Contrast: Contrast Medium: Contrast Amount: Contrast Method: Page 1 of 2 EXAM: XR Left Ribs EXAM DATE/TIME: 07/20/2019 12:41 PM CLINICAL HISTORY: 69 years old, female; Other: Left rib pain; Prior surgery; Surgery date: 6+ months; Surgery type: Pacemaker; Additional info: Fall TECHNIQUE: Imaging protocol: XR Left ribs. Views: 2 views. COMPARISON: CR Ribs 2V w Chest Lt 02/27/2018 5:07 PM FINDINGS: Limitations: The upper ribs were not included. Tubes, catheters and devices: A left-sided AICD is again present. Bones/joints: Nondisplaced fracture of the left sixth rib anteriorly was probably present previously. No definite other fracture is identified. Median sternotomy wires are again present. Soft tissues: Normal. IMPRESSION: No definite acute lower left rib fracture identified, with a nondisplaced fracture of the left sixth rib anteriorly probably present on 02/27/18. Thank you for allowing us to participate in the care of your patient. SANDEEP GARCIA | Final Radiology Report CONFIDENTIALITY STATEMENT This report is intended only for use by the referring physician, and only in accordance with law. If you received this in error, call [phone]. Page 2 of 2 Dictated and Authenticated by: Parish Rivas MD 07/20/2019 1:13 PM Central Time ([place] & [place]) [facility] Final Radiology Report Call: [phone] assistance Online chat: [email or web address] Name: SANDEEP GARCIA Age: 69Years F Date: 07/20/2019 SSN: -- : 1950 Study: CT HEAD WO Requesting Physician: MACKENZIE TUCKER Images: 141 Addl Studies: Provided Clinical History: Contrast: Without Contrast Medium: Contrast Amount: Contrast Method: Page 1 of 2 EXAM: CT Head Without Contrast EXAM DATE/TIME: 07/20/2019 12:36 PM CLINICAL HISTORY: 69 years old, female; Injury or trauma; Initial encounter; Blunt trauma ( contusions or hematomas); Consciousness not specified; Injury details: Fall, head injury on anticoagulant tx TECHNIQUE: Imaging protocol: Computed tomography of the head without contrast. Radiation optimization: All CT scans at this facility use at least one of these dose optimization techniques: automated exposure control; mA and/or kV adjustment per patient size (includes targeted exams where dose is matched to clinical indication); or iterative reconstruction. COMPARISON: No relevant prior studies available. FINDINGS: Brain: Patchy lucencies in the white matter are nonspecific but most suggestive of chronic microvascular ischemic disease. There is no evidence for large acute cortical infarct. No intracranial hemorrhage or extraaxial collection is identified. There is no significant intracranial mass effect. Ventricles: The ventricles and sulci are mildly prominent, in concordance with mild global atrophy. Bones/joints: Unremarkable. No acute fracture. Sinuses: Visualized sinuses are unremarkable. No fluid levels. Mastoid air cells: Visualized mastoid air cells are well aerated. Soft tissues: Unremarkable. Vasculature: Intracranial atherosclerotic vascular calcifications are present. IMPRESSION: SANDEEP GARCIA | Final Radiology Report CONFIDENTIALITY STATEMENT This report is intended only for use by the referring physician, and only in accordance with law. If you received this in error, call [phone]. Page [address] evidence for acute intracranial abnormality. Thank you for allowing us to participate in the care of your patient. Dictated and Authenticated by: Parish Rivas MD 07/20/2019 1:15 PM Central Time ([place] & [place]) Departure - Departure Time of Disposition: 13:28 Disposition: Home, Self-Care 01 Condition: Good Clinical Impression: Left-sided chest wall pain, Fall from ground level Concussion without loss of consciousness Qualifiers: Encounter type: initial encounter Qualified Code(s): S06.0X0A - Concussion without loss of consciousness, initial encounter Scalp hematoma Qualifiers: Encounter type: initial encounter Qualified Code(s): S00.03XA - Contusion of scalp, initial encounter - Discharge Information *PRESCRIPTION DRUG MONITORING PROGRAM REVIEWED*: No *COPY OF PRESCRIPTION DRUG MONITORING REPORT IN PATIENT MARIBEL: No Instructions: Concussion, Adult, [id number], Hematoma, [id number] Forms: ED Department Discharge Additional Instructions: Use the wheelchair as previously instructed. Follow up in clinic if any further concerns."
== END 2019-07-20 13:38 | disposition home or self-care (01) ==
LOC: DL.ED 12:25
DX: S06.0X0A Concussion without loss of consciousness, initial encounter (principal); S00.03XA Contusion of scalp, initial encounter; R07.89 Other chest pain; I10 Essential (primary) hypertension; E11.9 Type 2 diabetes mellitus without complications; I25.119 Atherosclerotic heart disease of native coronary artery with unspecified angina pectoris; I48.91 Unspecified atrial fibrillation; I25.2 Old myocardial infarction; E78.00 Pure hypercholesterolemia, unspecified; K21.9 Gastro-esophageal reflux disease without esophagitis; E66.9 Obesity, unspecified; Z88.5 Allergy status to narcotic agent; Z88.0 Allergy status to penicillin; Z91.041 Radiographic dye allergy status; Z91.048 Other nonmedicinal substance allergy status; Z88.8 Allergy status to other drugs, medicaments and biological substances; Z79.82 Long term (current) use of aspirin; Z79.02 Long term (current) use of antithrombotics/antiplatelets; Z79.4 Long term (current) use of insulin; Z79.899 Other long term (current) drug therapy; W01.10XA Fall on same level from slipping, tripping and stumbling with subsequent striking against unspecified object, initial encounter
CPT/HCPCS: 70450; 71100-LT; 99284-25

== ENCOUNTER 2020-03-03 00:40 | Emergency (ER) | payer OTHER ==
[2020-03-03] MEDS ORDERED: hydrOXYzine HCl 25 MG Tab PO ONE (00:41)
--- NOTE | 2020-03-03 01:08 | EDM.PDOCBH ---
ED HPI GENERAL MEDICAL PROBLEM - General Chief Complaint: Behavioral/Psych Stated Complaint: ANXIETY, DEPRESSED Time Seen by Provider: 03/03/20 01:01 Source of Information: Reports: Patient History Limitations: Reports: No Limitations - History of Present Illness INITIAL COMMENTS - FREE TEXT/NARRATIVE: feel very anxious about covid unable to sleep, been to [facility] told was anxiety but got no Rx to help. tonight been crying about it. - Related Data Allergies Allergy/AdvReac Type Severity Reaction Status Date / Time codeine Allergy Hallucinati Verified 03/03/20 00:43 ons diphenhydramine HCl Allergy Shaking Verified 03/03/20 00:43 [From Benadryl] Penicillins Allergy Rash Verified 03/03/20 00:43 simvastatin [From Zocor] Allergy Cannot Verified 03/03/20 00:43 Remember Ivp dye Allergy Hives Uncoded 03/03/20 00:43 wool Allergy Itching Uncoded 03/03/20 00:43 Home Meds: Home Meds Calcium Citrate/Vitamin D3 [Calcium Citrate - Vit D Caplet] 1 tab PO BID [History] Clopidogrel Bisulfate [Clopidogrel] 75 mg PO DAILY 03/18/14 [History] Insulin Detemir [Levemir] 30 units SQ BEDTIME 03/18/14 [History] Metoprolol Succinate [Toprol XL] 50 mg PO BID 03/18/14 [History] Simvastatin [Zocor] 40 mg PO BEDTIME 03/18/14 [History] Travoprost (Benzalkonium) [Travoprost 0.004% Eye Drop] 1 drop EYEBOTH BEDTIME [History] Multivitamin with Minerals [Multiple Vitamin] 1 tab PO DAILY 03/13/15 [History] Spironolactone [Aldactone] 25 mg PO DAILY 03/11/17 [History] Ascorbate Calcium [Vitamin C] 500 mg PO BID 04/22/19 [History] [place]/Min Oil/Luz/Wool Alcoh [Eucerin Creme] 0 gm TOP ASDIRECTED PRN 04/22/19 [History] Famotidine [Pepcid] 20 mg PO BID 04/22/19 [History] Fish Oil/[place]-3 Fatty Acids [Fish Oil 1,000 MG] 1 gm PO DAILY 04/22/19 [History ] Magnesium Oxide 400 mg PO .HS 04/22/19 [History] Triamcinolone Acetonide [Triamcinolone Acetonide 0.5%] 0 gm TOP ASDIRECTED PRN 04/22/19 [History] Aspirin [Halfprin] 81 mg PO DAILY 07/05/19 [History] Calcium Carbonate [Calcium] 500 mg PO ASDIRECTED PRN 07/05/19 [History] Fenofibrate Nanocrystallized [Fenofibrate] 48 mg PO DAILY 07/05/19 [History] Ertapenem [INVanz] 1 gm IV DAILY@1700 vial 07/12/19 [Rx] metOLazone [Zaroxolyn] 5 mg PO DAILY #30 tablet 07/12/19 [Rx] ramipriL [Altace] 2.5 mg PO BEDTIME #30 cap 07/12/19 [Rx] Past Medical History HEENT History: Reports: Glaucoma, Impaired Vision Other HEENT History: wears glasses Cardiovascular History: Reports: Afib, Angina, CAD, High Cholesterol, Hypertension, [place] Respiratory History: Reports: None Gastrointestinal History: Reports: GERD Genitourinary History: Reports: None CORN GRINDER History: Reports: None Musculoskeletal History: Reports: Amputation, Other (See Below) Other Musculoskeletal History: right great toe Neurological History: Reports: None Psychiatric History: Reports: None Endocrine/Metabolic History: Reports: Diabetes, Type II, IDDM, Obesity/BMI 30+ Hematologic History: Reports: None Immunologic History: Reports: None Oncologic (Cancer) History: Reports: None Dermatologic History: Reports: Cellulitis - Infectious Disease History Infectious Disease History: Reports: Other (See Below) Other Infectious Disease History: Acute Hepatitis - Past Surgical History HEENT Surgical History: Reports: Cataract Surgery Musculoskeletal Surgical History: Reports: Amputation Social & Family History - Family History Family Medical History: Noncontributory - Tobacco Use Smoking Status *Q: Unknown Ever Smoked Second Hand Smoke Exposure: No - Caffeine Use Caffeine Use: Reports: Tea - Recreational Drug Use Recreational Drug Use: No - Living Situation & Occupation Living situation: Reports: with Family Occupation: Retired ED ROS GENERAL - Review of Systems Review Of Systems: Comprehensive ROS is negative, except as noted in HPI. ED EXAM, BEHAVIORAL HEALTH - Physical Exam Exam: See Below Exam Limited By: No Limitations General Appearance: Alert, WD/WN, Anxious Eye Exam: Bilateral Eye: PERRL (pupils ER @ 4mm) Ears: Hearing Grossly Normal Throat/Mouth: Normal Voice, No Airway Compromise Head: Atraumatic Neck: Non-Tender, Full Range of Motion Respiratory/Chest: No Respiratory Distress Cardiovascular: Regular Rate, Rhythm GI/Abdominal: Soft, Non-Tender Neurological: Alert, Normal Cognition, Normal Gait, No Motor/Sensory Deficits, Oriented x 3 Psychiatric: Tearful, Other (anxious) Skin Exam: Warm, Dry, Normal color COURSE, BEHAVIORAL HEALTH COMP - Course Vital Signs: Last Vital Signs Temp 35.8 C L 03/03/20 00:51 Pulse 81 03/03/20 00:51 Resp 16 03/03/20 00:51 BP 123/89 03/03/20 00:51 Pulse Ox 100 03/03/20 00:51 Orders, Labs, Meds: Medications Discontinued Medications Generic Name Dose Route Start Last Admin Trade Name Freq PRN Reason Stop Dose Admin Hydroxyzine HCl Confirm 03/03/20 01:11 Atarax Administered 03/03/20 01:12 Dose 25 mg .ROUTE .STK-MED ONE Departure - Departure Time of Disposition: 01:16 Disposition: Home, Self-Care 01 Condition: Good Clinical Impression: Anxiety Insomnia Qualifiers: Insomnia type: unspecified Qualified Code(s): G47.00 - Insomnia, unspecified - Discharge Information Forms: ED Department Discharge Additional Instructions: follow up at clinic rx lauren; Dilan Sepsis Event Note - Evaluation Sepsis Screening Result: No Definite Risk - Focused Exam Vital Signs: Vital Signs Temp Pulse Resp BP Pulse Ox 03/03/20 00:51 35.8 C L 81 16 123/89 100 Date Exam was Performed: 03/03/20 Time Exam was Performed: 05:17
[2020-03-03] MEDS ORDERED: hydrOXYzine HCl 25 MG Tab ONE (01:11)
[2020-03-03 01:14] VITALS: BP 123/89; PULSE 81
== END 2020-03-03 01:16 | disposition home or self-care (01) ==
LOC: DL.ED 00:40
DX: F41.9 Anxiety disorder, unspecified (principal); G47.00 Insomnia, unspecified; I48.91 Unspecified atrial fibrillation; E78.00 Pure hypercholesterolemia, unspecified; I10 Essential (primary) hypertension; I25.2 Old myocardial infarction; K21.9 Gastro-esophageal reflux disease without esophagitis; I25.10 Atherosclerotic heart disease of native coronary artery without angina pectoris; E11.9 Type 2 diabetes mellitus without complications; E66.9 Obesity, unspecified; Z79.4 Long term (current) use of insulin; Z79.899 Other long term (current) drug therapy; Z79.82 Long term (current) use of aspirin; Z88.5 Allergy status to narcotic agent; Z88.0 Allergy status to penicillin; Z91.041 Radiographic dye allergy status; Z88.8 Allergy status to other drugs, medicaments and biological substances; Z91.09 Other allergy status, other than to drugs and biological substances; Z68.29 Body mass index [BMI] 29.0-29.9, adult; Z79.02 Long term (current) use of antithrombotics/antiplatelets
CPT/HCPCS: 99283; A9270

== ENCOUNTER 2020-03-17 09:04 | Emergency (ER) | payer MEDICARE, OTHER ==
--- NOTE | 2020-03-17 09:19 | EDM.PDOC ---
ED HPI GENERAL MEDICAL PROBLEM - General Chief Complaint: Genitourinary Problem Stated Complaint: UTI Time Seen by Provider: 03/17/20 09:18 Source of Information: Reports: Patient, RN, RN Notes Reviewed History Limitations: Reports: No Limitations - History of Present Illness INITIAL COMMENTS - FREE TEXT/NARRATIVE: Pt presents to ER with c/o a "UTI". Pt reports onset of pain and burning with urinary frequency yesterday. Denies fevers. Admits to mild chills. Denies flank pain, N/V, or hematuria. Onset: Gradual Onset Date: 03/16/20 Duration: Constant Location: Reports: Other (Urinary) Quality: Reports: Burning Severity: Moderate Improves with: Reports: None Worsens with: Reports: Other (Urination) Associated Symptoms: Reports: No Other Symptoms - Related Data Allergies Allergy/AdvReac Type Severity Reaction Status Date / Time codeine Allergy Hallucinati Verified 03/17/20 09:32 ons diphenhydramine HCl Allergy Shaking Verified 03/17/20 09:32 [From Benadryl] Penicillins Allergy Rash Verified 03/17/20 09:32 simvastatin [From Zocor] Allergy Cannot Verified 03/17/20 09:32 Remember Ivp dye Allergy Hives Uncoded 03/03/20 00:43 wool Allergy Itching Uncoded 03/03/20 00:43 Home Meds: Home Meds Calcium Citrate/Vitamin D3 [Calcium Citrate - Vit D Caplet] 1 tab PO BID [History] Clopidogrel Bisulfate [Clopidogrel] 75 mg PO DAILY 03/18/14 [History] Insulin Detemir [Levemir] 30 units SQ BEDTIME 03/18/14 [History] Metoprolol Succinate [Toprol XL] 50 mg PO BID 03/18/14 [History] Simvastatin [Zocor] 40 mg PO BEDTIME 03/18/14 [History] Travoprost (Benzalkonium) [Travoprost 0.004% Eye Drop] 1 drop EYEBOTH BEDTIME [History] Multivitamin with Minerals [Multiple Vitamin] 1 tab PO DAILY 03/13/15 [History] Spironolactone [Aldactone] 25 mg PO DAILY 03/11/17 [History] Ascorbate Calcium [Vitamin C] 500 mg PO BID 04/22/19 [History] [place]/Min Oil/Luz/Wool Alcoh [Eucerin Creme] 0 gm TOP ASDIRECTED PRN 04/22/19 [History] Famotidine [Pepcid] 20 mg PO BID 04/22/19 [History] Fish Oil/[place]-3 Fatty Acids [Fish Oil 1,000 MG] 1 gm PO DAILY 04/22/19 [History ] Magnesium Oxide 400 mg PO .HS 04/22/19 [History] Triamcinolone Acetonide [Triamcinolone Acetonide 0.5%] 0 gm TOP ASDIRECTED PRN 04/22/19 [History] Aspirin [Halfprin] 81 mg PO DAILY 07/05/19 [History] Calcium Carbonate [Calcium] 500 mg PO ASDIRECTED PRN 07/05/19 [History] Fenofibrate Nanocrystallized [Fenofibrate] 48 mg PO DAILY 07/05/19 [History] Ertapenem [INVanz] 1 gm IV DAILY@1700 vial 07/12/19 [Rx] metOLazone [Zaroxolyn] 5 mg PO DAILY #30 tablet 07/12/19 [Rx] ramipriL [Altace] 2.5 mg PO BEDTIME #30 cap 07/12/19 [Rx] Past Medical History HEENT History: Reports: Glaucoma, Impaired Vision Other HEENT History: wears glasses Cardiovascular History: Reports: Afib, Angina, CAD, High Cholesterol, Hypertension, [place] Respiratory History: Reports: None Gastrointestinal History: Reports: GERD Genitourinary History: Reports: None 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 Musculoskeletal History: Reports: Amputation, Other (See Below) Other Musculoskeletal History: right great toe Neurological History: Reports: None Psychiatric History: Reports: None Endocrine/Metabolic History: Reports: Diabetes, Type II, IDDM, Obesity/BMI 30+ Hematologic History: Reports: None Immunologic History: Reports: None Oncologic (Cancer) History: Reports: None Dermatologic History: Reports: Cellulitis - Infectious Disease History Infectious Disease History: Reports: Other (See Below) Other Infectious Disease History: Acute Hepatitis - Past Surgical History HEENT Surgical History: Reports: Cataract Surgery Musculoskeletal Surgical History: Reports: Amputation Social & Family History - Family History Family Medical History: Noncontributory - Caffeine Use Caffeine Use: Reports: Tea - Living Situation & Occupation Living situation: Reports: with Family Occupation: Retired ED ROS GENERAL - Review of Systems Review Of Systems: Comprehensive ROS is negative, except as noted in HPI. ED EXAM, RENAL/ - Physical Exam Exam: See Below Exam Limited By: No Limitations General Appearance: Alert, WD/WN, No Apparent Distress Head: Atraumatic, Normocephalic Respiratory/Chest: No Respiratory Distress Cardiovascular: Regular Rate, Rhythm GI/Abdominal: Normal Bowel Sounds, Soft, Non-Tender, No Organomegaly, No Distention, No Abnormal Bruit, No Mass Back Exam: Normal Inspection. No: CVA Tenderness (L), CVA Tenderness (R) Neurological: Alert, Oriented, No Motor/Sensory Deficits Psychiatric: Normal Mood Skin Exam: Warm, Dry, Intact, Normal Color, No Rash Course - Vital Signs Last Recorded V/S: Last Vital Signs Temp 96.6 F L 03/17/20 09:28 Pulse 75 03/17/20 09:28 Resp 14 03/17/20 09:28 BP 98/69 03/17/20 09:28 Pulse Ox 100 03/17/20 09:28 - Orders/Labs/Meds Orders: Active Orders 24 hr Category Date Time Status CULTURE URINE [RM] Stat Lab 03/17/20 09:22 Received Labs: Laboratory Tests 03/17/20 Range/Units 09:22 Urine Color Yellow (YELLOW) Urine Appearance Cloudy (CLEAR) Urine pH 6.5 (5.0-9.0) Ur Specific [place] 1.025 (1.005-1.030) Urine Protein 30 H (NEGATIVE) Urine Glucose (UA) Negative (NEGATIVE) Urine Ketones Negative (NEGATIVE) Urine Occult Blood Small H (NEGATIVE) Urine Nitrite Negative (NEGATIVE) Urine Bilirubin Negative (NEGATIVE) Urine Urobilinogen 0.2 (0.2-1.0) mg/dL Ur Leukocyte Esterase Large H (NEGATIVE) Urine RBC 5-10 H /HPF Urine WBC Semi-packed H (0-5/HPF) /HPF Ur Epithelial Cells Few (NOT SEEN) /HPF Urine Bacteria Many H (0-FEW/HPF) /HPF Urine Mucus Not seen (NOT SEEN) /LPF Meds: Medications Discontinued Medications Generic Name Dose Route Start Last Admin Trade Name Freq PRN Reason Stop Dose Admin Ciprofloxacin 500 mg 03/17/20 09:35 Ciprofloxacin Hcl PO 03/17/20 09:36 ONETIME ONE Phenazopyridine HCl 190 mg 03/17/20 09:36 Urinary Pain Relief PO 03/17/20 09:37 ONETIME ONE Departure - Departure Time of Disposition: 09:43 Disposition: Home, Self-Care 01 Condition: Good Clinical Impression: UTI, Urinary tract infectious disease - Discharge Information *PRESCRIPTION DRUG MONITORING PROGRAM REVIEWED*: Not Applicable *COPY OF PRESCRIPTION DRUG MONITORING REPORT IN PATIENT MARIBEL: Not Applicable Instructions: Urinary Tract Infection, Adult Forms: ED Department Discharge Additional Instructions: Rx: Cipro 500mg Rx: Pyridium 200mg (Turns urine orange color) Drink plenty of water. Follow up in clinic in 5 to 7 days for repeat urine. Sepsis Event Note - Focused Exam Vital Signs: Vital Signs Temp Pulse Resp BP Pulse Ox 03/17/20 09:28 96.6 F L 75 14 98/69 100 Date Exam was Performed: 03/17/20 Time Exam was Performed: 09:42 - My Orders Last 24 Hours: My Active Orders 03/17/20 09:22 CULTURE URINE [RM] Stat - Assessment/Plan Last 24 Hours: My Active Orders 03/17/20 09:22 CULTURE URINE [RM] Stat
[2020-03-17 09:31] VITALS: BP 98/69; PULSE 75
[2020-03-17] MEDS: Phenazopyridine 95 MG Tab PO ONE (09:51)
[2020-03-17] MEDS: Ciprofloxacin 500 MG Tab PO ONE (09:51)
== END 2020-03-17 09:54 | disposition home or self-care (01) ==
LOC: DL.ED 09:04
DX: N39.0 Urinary tract infection, site not specified (principal); I48.91 Unspecified atrial fibrillation; E78.00 Pure hypercholesterolemia, unspecified; Z79.4 Long term (current) use of insulin; I10 Essential (primary) hypertension; I25.2 Old myocardial infarction; K21.9 Gastro-esophageal reflux disease without esophagitis; E11.9 Type 2 diabetes mellitus without complications; E66.9 Obesity, unspecified; Z79.899 Other long term (current) drug therapy; Z88.5 Allergy status to narcotic agent; Z88.8 Allergy status to other drugs, medicaments and biological substances; Z88.0 Allergy status to penicillin; Z91.041 Radiographic dye allergy status; Z79.02 Long term (current) use of antithrombotics/antiplatelets; Z68.29 Body mass index [BMI] 29.0-29.9, adult
CPT/HCPCS: 81001; 87086; 87088; 87186; 99283; A9270

== ENCOUNTER 2020-04-20 11:22 | Emergency (ER) | payer OTHER ==
[2020-04-20 11:29] VITALS: BP 115/71; PULSE 86
--- NOTE | 2020-04-20 12:13 | EDM.PDOC ---
ED HPI GENERAL MEDICAL PROBLEM - General Chief Complaint: ENT Problem Stated Complaint: sinus infection Time Seen by Provider: 04/20/20 12:00 Source of Information: Reports: Patient, RN Notes Reviewed History Limitations: Reports: No Limitations - History of Present Illness INITIAL COMMENTS - FREE TEXT/NARRATIVE: 70 year old female who presents to the ER with complaints of sinus pressure in her travon and behind her eyes that began last night. She reports a history of sinusitis every spring and fall. Patient states was given a spray for it but ran out. She has not tried taking Claritin of Zyrtec. She denies having any URI symptoms, SOB, fevers/chills. She has not tried anything for her symptoms. Face/Facial Pain Score (Numeric/FACES): 5 - Related Data Allergies Allergy/AdvReac Type Severity Reaction Status Date / Time codeine Allergy Hallucinati Verified 04/20/20 11:31 ons diphenhydramine HCl Allergy Shaking Verified 04/20/20 11:31 [From Benadryl] Penicillins Allergy Rash Verified 04/20/20 11:31 simvastatin [From Zocor] Allergy Cannot Verified 04/20/20 11:31 Remember Ivp dye Allergy Hives Uncoded 03/03/20 00:43 wool Allergy Itching Uncoded 03/03/20 00:43 Home Meds: Home Meds Calcium Citrate/Vitamin D3 [Calcium Citrate - Vit D Caplet] 1 tab PO BID [History] Clopidogrel Bisulfate [Clopidogrel] 75 mg PO DAILY 03/18/14 [History] Insulin Detemir [Levemir] 35 units SQ PCBREAKFAST 03/18/14 [History] Metoprolol Succinate [Toprol XL] 25 mg PO BID 03/18/14 [History] Simvastatin [Zocor] 20 mg PO BEDTIME 03/18/14 [History] Travoprost (Benzalkonium) [Travoprost 0.004% Eye Drop] 1 drop EYEBOTH BEDTIME [History] Multivitamin with Minerals [Multiple Vitamin] 1 tab PO DAILY 03/13/15 [History] Spironolactone [Aldactone] 25 mg PO DAILY 03/11/17 [History] Ascorbate Calcium [Vitamin C] 500 mg PO BID 04/22/19 [History] [place]/Min Oil/Luz/Wool Alcoh [Eucerin Creme] 0 gm TOP ASDIRECTED PRN 04/22/19 [History] Famotidine [Pepcid] 20 mg PO BID 04/22/19 [History] Fish Oil/[place]-3 Fatty Acids [Fish Oil 1,000 MG] 1 gm PO DAILY 04/22/19 [History ] Magnesium Oxide 400 mg PO .HS 04/22/19 [History] Triamcinolone Acetonide [Triamcinolone Acetonide 0.5%] 0 gm TOP ASDIRECTED PRN 04/22/19 [History] Aspirin [Halfprin] 81 mg PO DAILY 07/05/19 [History] Calcium Carbonate [Calcium] 500 mg PO ASDIRECTED PRN 07/05/19 [History] ramipriL [Altace] 2.5 mg PO BEDTIME #30 cap 07/12/19 [Rx] Alogliptin Benzoate [Alogliptin] 25 mg PO DAILY 04/20/20 [History] LORazepam [Ativan] 0.5 mg PO DAILY 04/20/20 [History] metroNIDAZOLE [Metronidazole] 500 mg PO BID 04/20/20 [History] Past Medical History HEENT History: Reports: Glaucoma, Impaired Vision Other HEENT History: wears glasses Cardiovascular History: Reports: Afib, Angina, CAD, High Cholesterol, Hypertension, [place] Respiratory History: Reports: Other (See Below) Other Respiratory History: allergies and frequenct sinus infections Gastrointestinal History: Reports: GERD Genitourinary History: Reports: UTI, Recurrent 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 Musculoskeletal History: Reports: Amputation, Other (See Below) Other Musculoskeletal History: right great toe Neurological History: Reports: None Psychiatric History: Reports: None Endocrine/Metabolic History: Reports: Diabetes, Type II, IDDM, Obesity/BMI 30+ Hematologic History: Reports: None Immunologic History: Reports: None Oncologic (Cancer) History: Reports: None Dermatologic History: Reports: Cellulitis - Infectious Disease History Infectious Disease History: Reports: Other (See Below) Other Infectious Disease History: Acute Hepatitis - Past Surgical History HEENT Surgical History: Reports: Cataract Surgery Musculoskeletal Surgical History: Reports: Amputation Social & Family History - Family History Family Medical History: Noncontributory - Tobacco Use Smoking Status *Q: Former Smoker Used Tobacco, but Quit: Yes Month/Year Tobacco Last Used: 11/1989 - Caffeine Use Caffeine Use: Reports: Tea - Recreational Drug Use Recreational Drug Use: No - Living Situation & Occupation Living situation: Reports: with Family Occupation: Retired ED ROS ENT - Review of Systems Review Of Systems: Comprehensive ROS is negative, except as noted in HPI. ED EXAM, ENT - Physical Exam Exam: See Below Exam Limited By: No Limitations General Appearance: Alert, No Apparent Distress Eye Exam: Bilateral Eye: PERRL Nose: Normal Inspection, Normal Mucousa, No Blood Mouth/Throat: Normal Inspection, Normal Gums, Normal Lips, Normal Oropharynx, Normal Teeth, Other (Clear postnasal drip noted.) Head: Sinus Tenderness (Mild tenderness of the frontal sinuses with palpation) Neck: Normal Inspection, Supple, Non-Tender, Full Range of Motion Respiratory/Chest: No Respiratory Distress, Lungs Clear, Normal Breath Sounds, No Accessory Muscle Use, Chest Non-Tender Cardiovascular: Normal Peripheral Pulses, Regular Rate, Rhythm, No Edema, No Gallop, No JVD, No Murmur, No Rub GI/Abdominal: Normal Bowel Sounds, Soft, Non-Tender, No Organomegaly, No Distention, No Abnormal Bruit, No Mass Neurological: Alert, Oriented Psychiatric: Normal Affect, Normal Mood Skin: Warm, Dry, Intact, Normal Color, No Rash Lymphatic: No Adenopathy Course - Vital Signs Last Recorded V/S: Last Vital Signs Temp 97.1 F 04/20/20 11:27 Pulse 86 04/20/20 11:27 Resp 16 04/20/20 11:27 BP 115/71 04/20/20 11:27 Pulse Ox 100 04/20/20 11:27 - Re-Assessments/Exams Free Text/Narrative Re-Assessment/Exam: 04/20/20 12:19. 70 year old female who presents to the ER with one day complaints of sinus pressure. She has a history of recurrent allergies during this time of the year. Exam reveals mild sinus tenderness with palpation of the frontal sinuses and moderate clear post nasal drip. The rest of her exam was benign in regards to this visit RX for Flonase and Claritin send with patient. Medications side effects reviewed. Push fluids and rest. Patient verbalized understanding. Departure - Departure Time of Disposition: 12:12 Disposition: Home, Self-Care 01 Condition: Good, Fair Clinical Impression: Sinusitis, acute frontal Qualifiers: Recurrence: recurrent Qualified Code(s): J01.11 - Acute recurrent frontal sinusitis - Discharge Information *PRESCRIPTION DRUG MONITORING PROGRAM REVIEWED*: No *COPY OF PRESCRIPTION DRUG MONITORING REPORT IN PATIENT MARIBEL: No Instructions: Sinusitis, Adult, [id number], How to Perform a Sinus Rinse, [id number] Additional Instructions: Encouraged to use medications as prescribed. Push fluids and rest. Follow up with PCP in the clinic if symptoms fail to improved. Sepsis Event Note (ED) - Evaluation Sepsis Screening Result: No Definite Risk - Focused Exam Vital Signs: Vital Signs Temp Pulse Resp BP Pulse Ox 04/20/20 11:27 97.1 F 86 16 115/71 100
== END 2020-04-20 12:25 | disposition home or self-care (01) ==
LOC: DL.ED 11:22
DX: J01.11 Acute recurrent frontal sinusitis (principal); I10 Essential (primary) hypertension; I25.10 Atherosclerotic heart disease of native coronary artery without angina pectoris; I25.2 Old myocardial infarction; I48.91 Unspecified atrial fibrillation; E78.00 Pure hypercholesterolemia, unspecified; E11.9 Type 2 diabetes mellitus without complications; K21.9 Gastro-esophageal reflux disease without esophagitis; E66.9 Obesity, unspecified; Z68.28 Body mass index [BMI] 28.0-28.9, adult; Z87.891 Personal history of nicotine dependence; Z79.4 Long term (current) use of insulin; Z88.5 Allergy status to narcotic agent; Z88.0 Allergy status to penicillin; Z88.8 Allergy status to other drugs, medicaments and biological substances; Z91.041 Radiographic dye allergy status; Z91.048 Other nonmedicinal substance allergy status; Z79.02 Long term (current) use of antithrombotics/antiplatelets; Z79.899 Other long term (current) drug therapy; Z79.82 Long term (current) use of aspirin
CPT/HCPCS: 99283

== ENCOUNTER 2020-06-19 02:16 | Emergency (ER) | payer OTHER ==
--- NOTE | 2020-06-19 02:36 | EDM.PDOCBH ---
ED HPI GENERAL MEDICAL PROBLEM - General Chief Complaint: Syncope Stated Complaint: CHEST TIGHT, STAND UP DIZZY Time Seen by Provider: 06/19/20 02:36 Source of Information: Reports: Patient, RN, RN Notes Reviewed History Limitations: Reports: No Limitations - History of Present Illness INITIAL COMMENTS - FREE TEXT/NARRATIVE: Patient presents to ER with complaint of palpitations in the chest, and a vague "funny" feeling. Patient states she forgot to take her evening meds for Wednesday evening, and is very concerned that she missed those that this could have caused this. Patient states she has had her heart checked out at my not, and was told that she was having anxiety attacks. Patient does see behavioral health and has a prescription for lorazepam 0.5 mg. Patient did take 1 of these approximately 1/2-hour prior to arrival to the ER. Patient states she thinks things are improving, but still gets the feeling of palpitations in the chest. Patient denies any recent illnesses. States she was tested for COVID on June 11 and was negative, has not been in contact with any known COVID exposure since then. Patient denies pain in the chest, or shortness of breath. Onset: Today, Sudden - Related Data Allergies Allergy/AdvReac Type Severity Reaction Status Date / Time codeine Allergy Hallucinati Verified 04/20/20 11:31 ons diphenhydramine HCl Allergy Shaking Verified 04/20/20 11:31 [From Benadryl] Penicillins Allergy Rash Verified 04/20/20 11:31 simvastatin [From Zocor] Allergy Cannot Verified 04/20/20 11:31 Remember Ivp dye Allergy Hives Uncoded 03/03/20 00:43 wool Allergy Itching Uncoded 03/03/20 00:43 Home Meds: Home Meds Calcium Citrate/Vitamin D3 [Calcium Citrate - Vit D Caplet] 1 tab PO BID 03/18/14 [History] Clopidogrel Bisulfate [Clopidogrel] 75 mg PO DAILY 03/18/14 [History] Insulin Detemir [Levemir] 35 units SQ PCBREAKFAST 03/18/14 [History] Metoprolol Succinate [Toprol XL] 25 mg PO BID 03/18/14 [History] Simvastatin [Zocor] 20 mg PO BEDTIME 03/18/14 [History] Travoprost (Benzalkonium) [Travoprost 0.004% Eye Drop] 1 drop EYEBOTH BEDTIME 03/18/14 [History] Multivitamin with Minerals [Multiple Vitamin] 1 tab PO DAILY 03/13/15 [History] Spironolactone [Aldactone] 25 mg PO DAILY 03/11/17 [History] Ascorbate Calcium [Vitamin C] 500 mg PO BID 04/22/19 [History] [place]/Min Oil/Luz/Wool Alcoh [Eucerin Creme] 0 gm TOP ASDIRECTED PRN 04/22/19 [History] Famotidine [Pepcid] 20 mg PO BID 04/22/19 [History] Fish Oil/[place]-3 Fatty Acids [Fish Oil 1,000 MG] 1 gm PO DAILY 04/22/19 [History] Magnesium Oxide 400 mg PO .HS 04/22/19 [History] Triamcinolone Acetonide [Triamcinolone Acetonide 0.5%] 0 gm TOP ASDIRECTED PRN 04/22/19 [History] Aspirin [Halfprin] 81 mg PO DAILY 07/05/19 [History] Calcium Carbonate [Calcium] 500 mg PO ASDIRECTED PRN 07/05/19 [History] ramipriL [Altace] 2.5 mg PO BEDTIME #30 cap 07/12/19 [Rx] Alogliptin Benzoate [Alogliptin] 25 mg PO DAILY 04/20/20 [History] LORazepam [Ativan] 0.5 mg PO DAILY 04/20/20 [History] metroNIDAZOLE [Metronidazole] 500 mg PO BID 04/20/20 [History] Past Medical History HEENT History: Reports: Glaucoma, Impaired Vision Other HEENT History: wears glasses Cardiovascular History: Reports: Afib, Angina, CAD, High Cholesterol, Hypertension, [place] Respiratory History: Reports: Other (See Below) Other Respiratory History: allergies and frequenct sinus infections Gastrointestinal History: Reports: GERD Genitourinary History: Reports: UTI, Recurrent 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 Musculoskeletal History: Reports: Amputation, Other (See Below) Other Musculoskeletal History: right great toe Neurological History: Reports: None Psychiatric History: Reports: None Endocrine/Metabolic History: Reports: Diabetes, Type II, IDDM, Obesity/BMI 30+ Hematologic History: Reports: None Immunologic History: Reports: None Oncologic (Cancer) History: Reports: None Dermatologic History: Reports: Cellulitis - Infectious Disease History Infectious Disease History: Reports: Other (See Below) Other Infectious Disease History: Acute Hepatitis - Past Surgical History HEENT Surgical History: Reports: Cataract Surgery Musculoskeletal Surgical History: Reports: Amputation Social & Family History - Family History Family Medical History: Noncontributory - Caffeine Use Caffeine Use: Reports: Tea - Living Situation & Occupation Living situation: Reports: with Family Occupation: Retired ED ROS GENERAL - Review of Systems Review Of Systems: Comprehensive ROS is negative, except as noted in HPI. ED EXAM, BEHAVIORAL HEALTH - Physical Exam Exam: See Below Exam Limited By: No Limitations General Appearance: Alert, WD/WN, No Apparent Distress, Anxious Eye Exam: Bilateral Eye: EOMI, Normal Inspection Ears: Normal External Exam, Hearing Grossly Normal Nose: Normal Inspection Throat/Mouth: Normal Inspection, Normal Voice, No Airway Compromise Head: Atraumatic, Normocephalic Neck: Normal Inspection, Supple, Non-Tender, Full Range of Motion Respiratory/Chest: No Respiratory Distress, Lungs Clear, Normal Breath Sounds, No Accessory Muscle Use, Chest Non-Tender, Decreased Breath Sounds Cardiovascular: Normal Peripheral Pulses, Regular Rate, Rhythm, No Edema, No Gallop, No JVD, No Murmur, No Rub GI/Abdominal: Normal Bowel Sounds, Soft, Non-Tender (Female) Exam: Deferred Rectal (Female) Exam: Deferred Back Exam: Normal Inspection, Decreased Range of Motion Extremities: Normal Inspection, Normal Range of Motion, Non-Tender, Normal Capillary Refill, No Pedal Edema Neurological: Alert, Normal Mood/Affect, CN II-XII Intact, Normal Cognition, Normal Gait, Normal Reflexes, No Motor/Sensory Deficits, Oriented x 3 Psychiatric: Alert, Normal Affect, Normal Cognition, Normal Mood, Oriented Skin Exam: Warm, Dry, Intact, Normal color, No rash COURSE, BEHAVIORAL HEALTH COMP - Course Vital Signs: Last Vital Signs Temp 96.3 F L 06/19/20 02:35 Pulse 86 06/19/20 02:35 Resp 18 06/19/20 02:35 BP 110/52 L 06/19/20 02:35 Pulse Ox 100 06/19/20 02:35 Orders, Labs, Meds: Active Orders 24 hr Category Date Time Status EKG Documentation Completion [RC] STAT Care 06/19/20 02:47 Active Laboratory Tests 08/12/20 08/12/20 08/12/20 Range/Units 02:55 02:55 02:55 WBC 9.6 (5.0-10.0) 10^3/uL RBC 4.10 L (4.2-5.4) 10^6/uL Hgb 12.9 D (12.0-16.0) g/dL Hct 37.4 (37.0-47.0) % MCV 91.2 (80-100) fL MCH 31.5 (27.0-34.0) pg MCHC 34.5 (33.0-35.0) g/dL Plt Count 280 (150-450) 10^3/uL Neut % (Auto) 54.0 (42.2-75.2) % Lymph % (Auto) 28.5 (20.5-50.1) % [place] % (Auto) 10.5 H (2-8) % Eos % (Auto) 6.5 H (1.0-3.0) % Baso % (Auto) 0.5 (0.0-1.0) % Sodium 125 L (136-145) mmol/L Potassium 4.0 (3.5-5.1) mmol/L Chloride 91 L (98-107) mmol/L Carbon Dioxide 26 (21-32) mmol/L Anion Gap 12.0 (7-13) mEq/L BUN 18 (7-18) mg/dL Creatinine 0.81 (0.55-1.02) mg/dL Est Cr Clr Drug Dosing 56.17 mL/min Estimated GFR (MDRD) > 60 BUN/Creatinine Ratio 22.2 (No establ ref range) Glucose 129 H (74-99) mg/dL POC Glucose (83-110) mg/dl Calcium 9.2 (8.5-10.1) mg/dL Total Bilirubin 0.5 (0.2-1.0) mg/dL AST 13 L (15-37) U/L ALT 22 (14-59) U/L Alkaline Phosphatase 83 (46-116) U/L Troponin I < 0.017 (0.000-0.056) ng/mL B-Natriuretic Peptide 252 H (0-100) pg/ml Total Protein 7.8 (6.4-8.2) g/dL Albumin 3.8 (3.4-5.0) g/dL Globulin 4.0 Albumin/Globulin Ratio 0.9 08/20 Range/Units 03:08 WBC (5.0-10.0) 10^3/uL RBC (4.2-5.4) 10^6/uL Hgb (12.0-16.0) g/dL Hct (37.0-47.0) % MCV (80-100) fL MCH (27.0-34.0) pg MCHC (33.0-35.0) g/dL Plt Count (150-450) 10^3/uL Neut % (Auto) (42.2-75.2) % Lymph % (Auto) (20.5-50.1) % [place] % (Auto) (2-8) % Eos % (Auto) (1.0-3.0) % Baso % (Auto) (0.0-1.0) % Sodium (136-145) mmol/L Potassium (3.5-5.1) mmol/L Chloride (98-107) mmol/L Carbon Dioxide (21-32) mmol/L Anion Gap (7-13) mEq/L BUN (7-18) mg/dL Creatinine (0.55-1.02) mg/dL Est Cr Clr Drug Dosing mL/min Estimated GFR (MDRD) BUN/Creatinine Ratio (No establ ref range) Glucose (74-99) mg/dL POC Glucose 139 H (83-110) mg/dl Calcium (8.5-10.1) mg/dL Total Bilirubin (0.2-1.0) mg/dL AST (15-37) U/L ALT (14-59) U/L Alkaline Phosphatase (46-116) U/L Troponin I (0.000-0.056) ng/mL B-Natriuretic Peptide (0-100) pg/ml Total Protein (6.4-8.2) g/dL Albumin (3.4-5.0) g/dL Globulin Albumin/Globulin Ratio Departure - Departure Time of Disposition: 04:08 Disposition: Home, Self-Care 01 Condition: Fair Clinical Impression: Hyponatremia, Anxiety, CHF, Congestive heart failure - Discharge Information *PRESCRIPTION DRUG MONITORING PROGRAM REVIEWED*: No *COPY OF PRESCRIPTION DRUG MONITORING REPORT IN PATIENT MARIBEL: No Instructions: Water Intoxication, Heart Failure Eating Plan, Heart Failure, Self Care, [id number] Forms: ED Department Discharge Additional Instructions: Cut back significantly on water intake Take you medications as prescribed Call tomorrow to make an appointment with your primary care provider to recheck sodium and discuss medication management Sepsis Event Note (ED) - Focused Exam Vital Signs: Vital Signs Temp Pulse Resp BP Pulse Ox 06/19/20 02:35 96.3 F L 86 18 110/52 L 100 - My Orders Last 24 Hours: My Active Orders 06/19/20 02:47 EKG Documentation Completion [RC] STAT - Assessment/Plan Last 24 Hours: My Active Orders 06/19/20 02:47 EKG Documentation Completion [RC] STAT
[2020-06-19 02:45] VITALS: BP 110/52; PULSE 86
[2020-06-19 03:35] LABS: CHLORIDE,CL 91 mmol/L (98-107); SODIUM,NA 125 mmol/L (136-145)
== END 2020-06-19 04:19 | disposition home or self-care (01) ==
LOC: DL.ED 02:16
DX: I11.0 Hypertensive heart disease with heart failure (principal); I50.9 Heart failure, unspecified; F41.9 Anxiety disorder, unspecified; E87.1 Hypo-osmolality and hyponatremia; E78.00 Pure hypercholesterolemia, unspecified; I48.91 Unspecified atrial fibrillation; I25.2 Old myocardial infarction; E11.9 Type 2 diabetes mellitus without complications; E66.9 Obesity, unspecified; Z88.5 Allergy status to narcotic agent; Z88.8 Allergy status to other drugs, medicaments and biological substances; Z91.041 Radiographic dye allergy status; Z79.4 Long term (current) use of insulin; Z79.899 Other long term (current) drug therapy
CPT/HCPCS: 36415; 80053; 82962; 83880; 84484; 85025; 93005; 99283; 99285-25

== ENCOUNTER 2020-07-04 04:54 | Emergency (ER) | payer OTHER ==
[2020-07-04 05:23] VITALS: BP 126/71; PULSE 100
--- NOTE | 2020-07-04 06:13 | EDM.PDOC ---
ED HPI GENERAL MEDICAL PROBLEM - General Chief Complaint: General Stated Complaint: ISSUE WITH HEART MACHINE? Time Seen by Provider: 07/04/20 05:30 Source of Information: Reports: Patient, RN, RN Notes Reviewed History Limitations: Reports: No Limitations - History of Present Illness INITIAL COMMENTS - FREE TEXT/NARRATIVE: Patient presents to ER with no physical complaint, but states her machine for her internal defibrillator began beeping during the night. Patient states she has never heard this noise before and did not know what it was. Patient did use the machine to call in a recording. Mail Handlers Supervisor office is not open until 8 AM. Patient did call my not [facility] attempting to get help with the beeping, but as long as she was physically well and having no problems, she was to call her statement clerks supervisor office when they opened. Onset: Today, Sudden - Related Data Allergies Allergy/AdvReac Type Severity Reaction Status Date / Time codeine Allergy Hallucinati Verified 04/20/20 11:31 ons diphenhydramine HCl Allergy Shaking Verified 04/20/20 11:31 [From Benadryl] Penicillins Allergy Rash Verified 04/20/20 11:31 simvastatin [From Zocor] Allergy Cannot Verified 04/20/20 11:31 Remember Ivp dye Allergy Hives Uncoded 03/03/20 00:43 wool Allergy Itching Uncoded 03/03/20 00:43 Home Meds: Home Meds Calcium Citrate/Vitamin D3 [Calcium Citrate - Vit D Caplet] 1 tab PO BID 03/18/14 [History] Clopidogrel Bisulfate [Clopidogrel] 75 mg PO DAILY 03/18/14 [History] Insulin Detemir [Levemir] 35 units SQ PCBREAKFAST 03/18/14 [History] Metoprolol Succinate [Toprol XL] 25 mg PO BID 03/18/14 [History] Simvastatin [Zocor] 20 mg PO BEDTIME 03/18/14 [History] Travoprost (Benzalkonium) [Travoprost 0.004% Eye Drop] 1 drop EYEBOTH BEDTIME 03/18/14 [History] Multivitamin with Minerals [Multiple Vitamin] 1 tab PO DAILY 03/13/15 [History] Spironolactone [Aldactone] 25 mg PO DAILY 03/11/17 [History] Ascorbate Calcium [Vitamin C] 500 mg PO BID 04/22/19 [History] [place]/Min Oil/Luz/Wool Alcoh [Eucerin Creme] 0 gm TOP ASDIRECTED PRN 04/22/19 [History] Famotidine [Pepcid] 20 mg PO BID 04/22/19 [History] Fish Oil/[place]-3 Fatty Acids [Fish Oil 1,000 MG] 1 gm PO DAILY 04/22/19 [History] Magnesium Oxide 400 mg PO .HS 04/22/19 [History] Triamcinolone Acetonide [Triamcinolone Acetonide 0.5%] 0 gm TOP ASDIRECTED PRN 04/22/19 [History] Aspirin [Halfprin] 81 mg PO DAILY 07/05/19 [History] Calcium Carbonate [Calcium] 500 mg PO ASDIRECTED PRN 07/05/19 [History] ramipriL [Altace] 2.5 mg PO BEDTIME #30 cap 07/12/19 [Rx] Alogliptin Benzoate [Alogliptin] 25 mg PO DAILY 04/20/20 [History] LORazepam [Ativan] 0.5 mg PO DAILY 04/20/20 [History] metroNIDAZOLE [Metronidazole] 500 mg PO BID 04/20/20 [History] Past Medical History HEENT History: Reports: Glaucoma, Impaired Vision Other HEENT History: wears glasses Cardiovascular History: Reports: Afib, Angina, CAD, High Cholesterol, Hypertension, [place] Respiratory History: Reports: Other (See Below) Other Respiratory History: allergies and frequenct sinus infections Gastrointestinal History: Reports: GERD Genitourinary History: Reports: UTI, Recurrent 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 Musculoskeletal History: Reports: Amputation, Other (See Below) Other Musculoskeletal History: right great toe Neurological History: Reports: None Psychiatric History: Reports: None Endocrine/Metabolic History: Reports: Diabetes, Type II, IDDM, Obesity/BMI 30+ Hematologic History: Reports: None Immunologic History: Reports: None Oncologic (Cancer) History: Reports: None Dermatologic History: Reports: Cellulitis - Infectious Disease History Infectious Disease History: Reports: Other (See Below) Other Infectious Disease History: Acute Hepatitis - Past Surgical History HEENT Surgical History: Reports: Cataract Surgery Musculoskeletal Surgical History: Reports: Amputation Social & Family History - Family History Family Medical History: Noncontributory - Caffeine Use Caffeine Use: Reports: Tea - Living Situation & Occupation Living situation: Reports: with Family Occupation: Retired ED ROS GENERAL - Review of Systems Review Of Systems: Comprehensive ROS is negative, except as noted in HPI. ED EXAM, GENERAL - Physical Exam Exam: See Below Exam Limited By: No Limitations General Appearance: Alert, WD/WN, No Apparent Distress, Anxious Eye Exam: Bilateral Eye: EOMI, Normal Inspection Ears: Normal External Exam, Hearing Grossly Normal Nose: Normal Inspection Throat/Mouth: Normal Inspection, Normal Voice, No Airway Compromise Head: Atraumatic, Normocephalic Neck: Normal Inspection Respiratory/Chest: No Respiratory Distress, Lungs Clear, Normal Breath Sounds, No Accessory Muscle Use, Chest Non-Tender Cardiovascular: Normal Peripheral Pulses, Regular Rate, Rhythm, No Edema, No Gallop, No JVD, No Murmur, No Rub Peripheral Pulses: 2+: Radial (L), Radial (R) GI/Abdominal: Normal Bowel Sounds, Soft, Non-Tender (Female) Exam: Deferred Rectal (Female) Exam: Deferred Back Exam: Normal Inspection, Full Range of Motion, NT Extremities: Normal Inspection, Normal Range of Motion, Non-Tender, Normal Capillary Refill, No Pedal Edema Neurological: Alert, Oriented, CN II-XII Intact, Normal Cognition, Normal Gait, Normal Reflexes, No Motor/Sensory Deficits Psychiatric: Normal Affect, Normal Mood, Anxious Skin Exam: Warm, Dry, Intact, Normal Color, No Rash Lymphatic: No Adenopathy Course - Vital Signs Last Recorded V/S: Last Vital Signs Temp 96.6 F L 07/04/20 05:17 Pulse 100 07/04/20 05:17 Resp 16 07/04/20 05:17 BP 126/71 07/04/20 05:17 Pulse Ox 100 07/04/20 05:17 Departure - Departure Time of Disposition: 06:13 Disposition: Home, Self-Care 01 Condition: Good Clinical Impression: Physically well but worried - Discharge Information *PRESCRIPTION DRUG MONITORING PROGRAM REVIEWED*: No *COPY OF PRESCRIPTION DRUG MONITORING REPORT IN PATIENT MARIBEL: No Additional Instructions: Follow-up with your statement clerks supervisor office at 8 AM. Sepsis Event Note (ED) - Evaluation Sepsis Screening Result: No Definite Risk - Focused Exam Vital Signs: Vital Signs Temp Pulse Resp BP Pulse Ox 07/04/20 05:17 96.6 F L 100 16 126/71 100
== END 2020-07-04 06:18 | disposition home or self-care (01) ==
LOC: DL.ED 04:54
DX: Z71.1 Person with feared health complaint in whom no diagnosis is made (principal); K21.9 Gastro-esophageal reflux disease without esophagitis; E78.00 Pure hypercholesterolemia, unspecified; I48.91 Unspecified atrial fibrillation; I25.2 Old myocardial infarction; I10 Essential (primary) hypertension; I25.10 Atherosclerotic heart disease of native coronary artery without angina pectoris; E11.9 Type 2 diabetes mellitus without complications; E66.9 Obesity, unspecified; Z88.5 Allergy status to narcotic agent; Z88.8 Allergy status to other drugs, medicaments and biological substances; Z88.0 Allergy status to penicillin; Z91.041 Radiographic dye allergy status; Z91.09 Other allergy status, other than to drugs and biological substances; Z79.4 Long term (current) use of insulin; Z79.899 Other long term (current) drug therapy; Z79.82 Long term (current) use of aspirin; Z68.27 Body mass index [BMI] 27.0-27.9, adult; Z79.02 Long term (current) use of antithrombotics/antiplatelets
CPT/HCPCS: 99283

== ENCOUNTER 2020-07-07 09:09 | Emergency (ER) | payer OTHER ==
[2020-07-07 09:31] VITALS: PULSE 100
[2020-07-07 09:39] VITALS: BP 118/62
--- NOTE | 2020-07-07 09:59 | EDM.PDOC ---
ED HPI GENERAL MEDICAL PROBLEM - General Chief Complaint: Genitourinary Problem Stated Complaint: bladder device problems or infection Time Seen by Provider: 07/07/20 09:59 Source of Information: Reports: Patient, RN, RN Notes Reviewed History Limitations: Reports: No Limitations - History of Present Illness INITIAL COMMENTS - FREE TEXT/NARRATIVE: Patient presents to ER with complaint of possible urinary tract infection. Patient states her pessary was taken out, and she had an appointment on to have it replaced. On patient ended up coming to the ER due to her pacemaker beeping, and later in the day went to not to have pacemaker fixed. Patient does have an appointment rescheduled for urology on July 16 to have pessary replaced. Patient states she does have to hold the bladder and when she is urinating. States there has been a foul odor to her urine. Denies any frequency, urgency, burning with urination. Admits to chills from time to time, denies fever. Patient states she has taken Tylenol and this has helped. Onset: Gradual - Related Data Allergies Allergy/AdvReac Type Severity Reaction Status Date / Time codeine Allergy Hallucinati Verified 07/07/20 09:31 ons diphenhydramine HCl Allergy Shaking Verified 07/07/20 09:31 [From Benadryl] Penicillins Allergy Rash Verified 07/07/20 09:31 simvastatin [From Zocor] Allergy Cannot Verified 07/07/20 09:31 Remember Ivp dye Allergy Hives Uncoded 07/07/20 09:31 wool Allergy Itching Uncoded 07/07/20 09:31 Home Meds: Home Meds Calcium Citrate/Vitamin D3 [Calcium Citrate - Vit D Caplet] 1 tab PO BID 03/18/14 [History] Clopidogrel Bisulfate [Clopidogrel] 75 mg PO DAILY 03/18/14 [History] Insulin Detemir [Levemir] 35 units SQ PCBREAKFAST 03/18/14 [History] Metoprolol Succinate [Toprol XL] 25 mg PO BID 03/18/14 [History] Simvastatin [Zocor] 20 mg PO BEDTIME 03/18/14 [History] Travoprost (Benzalkonium) [Travoprost 0.004% Eye Drop] 1 drop EYEBOTH BEDTIME 03/18/14 [History] Multivitamin with Minerals [Multiple Vitamin] 1 tab PO DAILY 03/13/15 [History] Spironolactone [Aldactone] 25 mg PO DAILY 03/11/17 [History] Ascorbate Calcium [Vitamin C] 500 mg PO BID 04/22/19 [History] [place]/Min Oil/Luz/Wool Alcoh [Eucerin Creme] 0 gm TOP ASDIRECTED PRN 04/22/19 [History] Famotidine [Pepcid] 20 mg PO BID 04/22/19 [History] Fish Oil/[place]-3 Fatty Acids [Fish Oil 1,000 MG] 1 gm PO DAILY 04/22/19 [History] Magnesium Oxide 400 mg PO .HS 04/22/19 [History] Triamcinolone Acetonide [Triamcinolone Acetonide 0.5%] 0 gm TOP ASDIRECTED PRN 04/22/19 [History] Aspirin [Halfprin] 81 mg PO DAILY 07/05/19 [History] Calcium Carbonate [Calcium] 500 mg PO ASDIRECTED PRN 07/05/19 [History] ramipriL [Altace] 2.5 mg PO BEDTIME #30 cap 07/12/19 [Rx] Alogliptin Benzoate [Alogliptin] 25 mg PO DAILY 04/20/20 [History] LORazepam [Ativan] 0.5 mg PO DAILY 04/20/20 [History] metroNIDAZOLE [Metronidazole] 500 mg PO BID 04/20/20 [History] Past Medical History HEENT History: Reports: Glaucoma, Impaired Vision Other HEENT History: wears glasses Cardiovascular History: Reports: Afib, Angina, CAD, High Cholesterol, Hypertension, [place] Respiratory History: Reports: Other (See Below) Other Respiratory History: allergies and frequenct sinus infections Gastrointestinal History: Reports: GERD Genitourinary History: Reports: UTI, Recurrent 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 Musculoskeletal History: Reports: Amputation, Other (See Below) Other Musculoskeletal History: right great toe Neurological History: Reports: None Psychiatric History: Reports: None Endocrine/Metabolic History: Reports: Diabetes, Type II, IDDM, Obesity/BMI 30+ Hematologic History: Reports: None Immunologic History: Reports: None Oncologic (Cancer) History: Reports: None Dermatologic History: Reports: Cellulitis - Infectious Disease History Infectious Disease History: Reports: Other (See Below) Other Infectious Disease History: Acute Hepatitis - Past Surgical History HEENT Surgical History: Reports: Cataract Surgery Musculoskeletal Surgical History: Reports: Amputation Social & Family History - Family History Family Medical History: Noncontributory - Tobacco Use Smoking Status *Q: Never Smoker Second Hand Smoke Exposure: No - Caffeine Use Caffeine Use: Reports: None - Recreational Drug Use Recreational Drug Use: No - Living Situation & Occupation Living situation: Reports: with Family Occupation: Retired ED ROS GENERAL - Review of Systems Review Of Systems: Comprehensive ROS is negative, except as noted in HPI. ED EXAM, RENAL/ - Physical Exam Exam: See Below Exam Limited By: No Limitations General Appearance: Alert, WD/WN, No Apparent Distress Eye Exam: Bilateral Eye: EOMI, Normal Inspection Ears: Normal External Exam, Hearing Grossly Normal Nose: Normal Inspection Throat/Mouth: Normal Inspection, Normal Voice, No Airway Compromise Head: Atraumatic, Normocephalic Neck: Normal Inspection, Supple, Non-Tender, Full Range of Motion Respiratory/Chest: No Respiratory Distress, Lungs Clear, Normal Breath Sounds, No Accessory Muscle Use, Chest Non-Tender Cardiovascular: Normal Peripheral Pulses, Regular Rate, Rhythm, No Edema, No Gallop, No JVD, No Murmur, No Rub GI/Abdominal: Normal Bowel Sounds, Soft, Non-Tender (Female) Exam: Deferred Rectal (Female) Exam: Deferred Back Exam: Normal Inspection, Full Range of Motion, NT Extremities: Normal Inspection, Normal Range of Motion, Non-Tender, Normal Capillary Refill, No Pedal Edema Neurological: Alert, Oriented, CN II-XII Intact, Normal Cognition, Normal Gait, Normal Reflexes, No Motor/Sensory Deficits Psychiatric: Normal Affect, Normal Mood Skin Exam: Warm, Dry, Intact, Normal Color, No Rash Lymphatic: No Adenopathy Course - Vital Signs Last Recorded V/S: Last Vital Signs Temp 95.7 F L 07/07/20 09:19 Pulse 100 07/07/20 09:19 Resp 16 07/07/20 09:19 BP 118/62 07/07/20 09:38 Pulse Ox 100 07/07/20 09:19 - Orders/Labs/Meds Orders: Active Orders 24 hr Category Date Time Status CULTURE URINE [RM] Stat Lab 07/07/20 09:31 Received Labs: Laboratory Tests 07/07/20 Range/Units 09:31 Urine Color Yellow (YELLOW) Urine Appearance Slightly cloudy (CLEAR) Urine pH 7.5 (5.0-9.0) Ur Specific [place] 1.020 (1.005-1.030) Urine Protein Negative (NEGATIVE) Urine Glucose (UA) Negative (NEGATIVE) Urine Ketones Negative (NEGATIVE) Urine Occult Blood Small H (NEGATIVE) Urine Nitrite Negative (NEGATIVE) Urine Bilirubin Negative (NEGATIVE) Urine Urobilinogen 0.2 (0.2-1.0) mg/dL Ur Leukocyte Esterase Moderate H (NEGATIVE) Urine RBC 0-5 /HPF Urine WBC 0-5 (0-5/HPF) /HPF Ur Epithelial Cells Occasional (NOT SEEN) /HPF Urine Bacteria Rare (0-FEW/HPF) /HPF Departure - Departure Time of Disposition: 10:14 Disposition: Home, Self-Care 01 Condition: Good Clinical Impression: Worried well - Discharge Information *PRESCRIPTION DRUG MONITORING PROGRAM REVIEWED*: No *COPY OF PRESCRIPTION DRUG MONITORING REPORT IN PATIENT MARIBEL: No Forms: ED Department Discharge Additional Instructions: Follow-up with your primary care provider tomorrow Follow-up with urology on July 16 Sepsis Event Note (ED) - Evaluation Sepsis Screening Result: No Definite Risk - Focused Exam Vital Signs: Vital Signs Temp Pulse Resp BP Pulse Ox 07/07/20 09:38 118/62 07/07/20 09:19 95.7 F L 100 16 102/87 100 - My Orders Last 24 Hours: My Active Orders 07/07/20 09:31 CULTURE URINE [RM] Stat - Assessment/Plan Last 24 Hours: My Active Orders 07/07/20 09:31 CULTURE URINE [RM] Stat
== END 2020-07-07 10:25 | disposition home or self-care (01) ==
LOC: DL.ED 09:09
DX: R45.82 Worries (principal); I48.91 Unspecified atrial fibrillation; I25.10 Atherosclerotic heart disease of native coronary artery without angina pectoris; I10 Essential (primary) hypertension; I25.2 Old myocardial infarction; E11.9 Type 2 diabetes mellitus without complications; E66.9 Obesity, unspecified; Z88.0 Allergy status to penicillin; Z88.6 Allergy status to analgesic agent; Z88.8 Allergy status to other drugs, medicaments and biological substances; Z91.09 Other allergy status, other than to drugs and biological substances; Z91.041 Radiographic dye allergy status; Z68.26 Body mass index [BMI] 26.0-26.9, adult; Z79.82 Long term (current) use of aspirin; Z79.01 Long term (current) use of anticoagulants; Z79.899 Other long term (current) drug therapy
CPT/HCPCS: 81001; 87086; 87088; 87186; 99283

== ENCOUNTER 2020-08-11 11:53 | Emergency (ER) | payer OTHER ==
[2020-08-11 12:14] VITALS: BP 126/76; PULSE 86
--- NOTE | 2020-08-11 12:24 | EDM.PDOC ---
<Claudio Armstrongian - Last Filed: 08/11/20 12:49> ED HPI GENERAL MEDICAL PROBLEM - General Chief Complaint: Upper Extremity Injury/Pain Stated Complaint: FELL ON RIGHT SHOULDER Time Seen by Provider: 08/11/20 12:07 - Related Data Allergies Allergy/AdvReac Type Severity Reaction Status Date / Time codeine Allergy Hallucinati Verified 07/07/20 09:31 ons diphenhydramine HCl Allergy Shaking Verified 07/07/20 09:31 [From Benadryl] Penicillins Allergy Rash Verified 07/07/20 09:31 simvastatin [From Zocor] Allergy Cannot Verified 07/07/20 09:31 Remember Ivp dye Allergy Hives Uncoded 07/07/20 09:31 wool Allergy Itching Uncoded 07/07/20 09:31 Home Meds: Home Meds Calcium Citrate/Vitamin D3 [Calcium Citrate - Vit D Caplet] 1 tab PO BID 03/18/14 [History] Clopidogrel Bisulfate [Clopidogrel] 75 mg PO DAILY 03/18/14 [History] Insulin Detemir [Levemir] 35 units SQ PCBREAKFAST 03/18/14 [History] Simvastatin [Zocor] 20 mg PO BEDTIME 03/18/14 [History] Travoprost (Benzalkonium) [Travoprost 0.004% Eye Drop] 1 drop EYEBOTH BEDTIME 03/18/14 [History] Multivitamin with Minerals [Multiple Vitamin] 1 tab PO DAILY 03/13/15 [History] Spironolactone [Aldactone] 25 mg PO DAILY 03/11/17 [History] Ascorbate Calcium [Vitamin C] 500 mg PO BID 04/22/19 [History] [place]/Min Oil/Luz/Wool Alcoh [Eucerin Creme] 0 gm TOP ASDIRECTED PRN 04/22/19 [History] Famotidine [Pepcid] 20 mg PO BID 04/22/19 [History] Fish Oil/[place]-3 Fatty Acids [Fish Oil 1,000 MG] 1 gm PO DAILY 04/22/19 [History] Magnesium Oxide 400 mg PO .HS 04/22/19 [History] Triamcinolone Acetonide [Triamcinolone Acetonide 0.5%] 0 gm TOP ASDIRECTED PRN 04/22/19 [History] Aspirin [Halfprin] 81 mg PO DAILY 07/05/19 [History] Calcium Carbonate [Calcium] 500 mg PO ASDIRECTED PRN 07/05/19 [History] Alogliptin Benzoate [Alogliptin] 25 mg PO DAILY 04/20/20 [History] LORazepam [Ativan] 0.5 mg PO DAILY 04/20/20 [History] metroNIDAZOLE [Metronidazole] 500 mg PO BID 04/20/20 [History] Metoprolol Succinate [Toprol XL] 12.5 mg PO DAILY 08/11/20 [History] ramipriL [Altace] 2.5 mg PO DAILY 08/11/20 [History] traMADol HCl [Tramadol HCl] 50 mg PO Q6H PRN #14 tablet MDD 400 mg 08/11/20 [Rx] Course - Radiology Interpretation Free Text/Narrative:: [facility] Final Radiology Report Call: [phone] assistance Online chat: [email or web address] Name: SANDEEP GARCIA Age: 70Years F Date: 08/11/2020 SSN: -- : 1950 Study: CR HUMERUS RT Requesting Physician: Mike Jane Images: 1 Addl Studies: Provided Clinical History: fall, pain right proximal humerus Contrast: Contrast Medium: Contrast Amount: Contrast Method: CONFIDENTIALITY STATEMENT This report is intended only for use by the referring physician, and only in accordance with law. If you received this in error, call [phone]. Page 1 of 1 PROCEDURE INFORMATION: Exam: XR Right Humerus Exam date and time: 08/11/2020 12:19 PM Age: 70 years old Clinical indication: Pain; Shoulder; Right; Additional info: Fall, pain right proximal humerus TECHNIQUE: Imaging protocol: XR Right humerus Views: 2 or more views. COMPARISON: No relevant prior studies available. FINDINGS: Bones/joints: A moderately offset and angulated fractures present of the proximal humerus approximately 1.5 cm below the surgical neck. There is significant impaction of the fracture fragments. The glenohumeral a greer shift remains in anatomic alignment. Bone mineral density is moderately diminished. Soft tissues: Normal. IMPRESSION: 1. Moderately offset, impacted and angulated proximal humeral fracture. Thank you for allowing us to participate in the care of your patient. Dictated and Authenticated by: Mason Hemphill MD 08/11/2020 12:47 PM Central Time ([place] & [place]) [facility] Final Radiology Report Call: [phone] assistance Online chat: [email or web address] Name: SANDEEP GARCIA Age: 70Years F Date: 08/11/2020 SSN: -- : 1950 Study: CR SHOULDER COMP RT Requesting Physician: Mike Jane Images: 3 Addl Studies: Provided Clinical History: fall, pain right proximal humerus Contrast: Contrast Medium: Contrast Amount: Contrast Method: CONFIDENTIALITY STATEMENT This report is intended only for use by the referring physician, and only in accordance with law. If you received this in error, call [phone]. Page 1 of 1 PROCEDURE INFORMATION: Exam: XR Right Shoulder Exam date and time: 08/11/2020 12:31 PM Age: 70 years old Clinical indication: Pain; Shoulder; Right; Additional info: Fall, pain right proximal humerus TECHNIQUE: Imaging protocol: XR Right shoulder. Views: 2 or more views. COMPARISON: No relevant prior studies available. FINDINGS: Bones/joints: A fractures present involving the proximal humerus. It is angulated, multi component and moderately offset. Mild to moderate grade degenerative changes are noted within the glenohumeral joint. Moderate grade degenerative changes are noted within the acromioclavicular joint. Bone mineral density is diffusely diminished. Soft tissues: Normal. IMPRESSION: 1. Moderately offset and angulated fracture of the proximal humerus. Thank you for allowing us to participate in the care of your patient. Dictated and Authenticated by: Mason Hemphill MD 08/11/2020 12:48 PM Central Time ([place] & [place]) - Re-Assessments/Exams Free Text/Narrative Re-Assessment/Exam: 08/11/20 12:43 I saw and evaluated the patient. Discussed with resident and agree with residents findings and plan as documented in the residents note. Departure - Departure Disposition: Home, Self-Care 01 Clinical Impression: Proximal humerus fracture Qualifiers: Encounter type: initial encounter Fracture type: closed Fracture morphology: other fracture Fracture alignment: displaced Laterality: right Qualified Code(s): S42.291A - Other displaced fracture of upper end of right humerus, initial encounter for closed fracture - Discharge Information Prescriptions: traMADol HCl [Tramadol HCl] 50 mg PO Q6H PRN #14 tablet MDD 400 mg PRN Reason: Pain Instructions: Humerus Fracture Treated With Immobilization, [id number], How To Use a Sling, [id number] Forms: ED Department Discharge, ED Return to Work/School Form Additional Instructions: Use pain medication (Tramadol) as needed. You may use Tylenol in addition to what was prescribed. Take caution when taking Tramadol. Limit activity over the next two days, avoid any use of the right arm. Keep your right arm in the sling. Call [facility] at [phone] Wednesday morning to schedule an appointment with Dr. Ritter. He expects to see you in the clinic on Wednesday. If you experience worsening pain, swelling, tightness of the skin, numbness or tingling in the hand or arm, or if the arm feels cool to the touch, return to the emergency department immediately. <Mike Jane - Last Filed: 08/11/20 13:13> ED HPI GENERAL MEDICAL PROBLEM - General Source of Information: Reports: Patient History Limitations: Reports: No Limitations - History of Present Illness INITIAL COMMENTS - FREE TEXT/NARRATIVE: Pt is a 70 y/o female who presents to the ED with complaints of right shoulder pain. Patient states she was standing in her home talking to her niece when she became lightheaded and fell against a door, injuring her right shoulder. She denies any other injury sustained during the fall. She states that her vision darkened but she does not believe she lost consciousness, as she was able to hear and respond to her niece throughout the incident. Patient has a history of these type of symptoms that were thought to be related to her blood pressure. She underwent dosage decrease per her primary that improved the symptoms but they recently returned. She had similar lightheaded feelings in the last couple days 2-3 times prior to falling. This is the only time she fell. She denies any other related symptoms. 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 RELIGIOUS RITUAL History: Reports: None Musculoskeletal History: Reports: Amputation, Other (See Below) Other Musculoskeletal History: right great toe Neurological History: Reports: None Psychiatric History: Reports: None Endocrine/Metabolic History: Reports: Diabetes, Type II, IDDM, Obesity/BMI 30+ Hematologic History: Reports: None Immunologic History: Reports: None Oncologic (Cancer) History: Reports: None Dermatologic History: Reports: Cellulitis - Infectious Disease History Infectious Disease History: Reports: Other (See Below) Other Infectious Disease History: Acute Hepatitis - Past Surgical History HEENT Surgical History: Reports: Cataract Surgery Musculoskeletal Surgical History: Reports: Amputation Social & Family History - Family History Family Medical History: Noncontributory - Tobacco Use Smoking Status *Q: Never Smoker Second Hand Smoke Exposure: No - Caffeine Use Caffeine Use: Reports: None - Living Situation & Occupation Living situation: Reports: with Family Occupation: Retired Review of Systems - Review of Systems Review Of Systems: See Below Constitutional: Denies: Chills, Fever, Weakness Eyes: Reports: Vision Change Nose: Denies: Congestion, Clear Discharge Mouth/Throat: Reports: No Symptoms Respiratory: Denies: Shortness of Breath, Cough Cardiovascular: Reports: Lightheadedness. Denies: Chest Pain GI/Abdominal: Denies: Abdominal Pain, Diarrhea, Vomiting Genitourinary: Denies: Dysuria Musculoskeletal: Reports: Shoulder Pain Skin: Denies: Rash Neurological: Reports: Dizziness. Denies: Headache, Numbness, Weakness, Change in Speech Psychiatric: Reports: Anxiety ED EXAM, GENERAL - Physical Exam Exam: See Below Exam Limited By: Physical Impairment (right upper extremity exam limited by pain) General Appearance: Alert, WD/WN, Anxious Eye Exam: Bilateral Eye: EOMI, Normal Inspection Ears: Normal External Exam, Hearing Grossly Normal Nose: Normal Inspection Head: Atraumatic, Normocephalic Neck: Normal Inspection, Supple, Non-Tender. No: Lymphadenopathy (L), Lymphadenopathy (R) Respiratory/Chest: No Respiratory Distress, Lungs Clear, Normal Breath Sounds, No Accessory Muscle Use, Chest Non-Tender Cardiovascular: Normal Peripheral Pulses, Regular Rate, Rhythm, No Edema, No Gallop, No Murmur, No Rub Peripheral Pulses: 2+: Radial (L), Radial (R) GI/Abdominal: Normal Bowel Sounds, Soft, Non-Tender, No Distention Back Exam: Normal Inspection. No: CVA Tenderness (L), CVA Tenderness (R), Vertebral Tenderness Extremities: Arm Pain (Tender to palpation at right proximal humerus.), Limited Range of Motion (Normal strength and ROM LUE. 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 Normal passive internal rotation of right shoulder, ROM severely limited by pain in all other planes. Crepitus with extension/flexion of the right elbow.). No: Slow Capillary Refill Neurological: Alert, Oriented, CN II-XII Intact, Normal Cognition Psychiatric: Normal Affect, Anxious Skin Exam: Warm, Dry, Intact Course - Vital Signs Last Recorded V/S: Last Vital Signs Temp 97.6 F 08/11/20 11:58 Pulse 86 08/11/20 11:58 Resp 16 08/11/20 11:58 BP 126/76 08/11/20 11:58 Pulse Ox 100 08/11/20 11:58 - Orders/Labs/Meds Orders: Active Orders 24 hr Category Date Time Status DME for Discharge [COMM] Stat Oth 08/11/20 12:23 Ordered Departure - Departure Time of Disposition: 13:07 Condition: Fair - Discharge Information *PRESCRIPTION DRUG MONITORING PROGRAM REVIEWED*: No *COPY OF PRESCRIPTION DRUG MONITORING REPORT IN PATIENT MARIBEL: No (Unable to access MEDICAL CONSULTANT report due to system error.) Sepsis Event Note (ED) - Evaluation Sepsis Screening Result: No Definite Risk - Focused Exam Vital Signs: Vital Signs Temp Pulse Resp BP Pulse Ox 08/11/20 11:58 97.6 F 86 16 126/76 100 - My Orders Last 24 Hours: My Active Orders 08/11/20 12:23 DME for Discharge [COMM] Stat - Assessment/Plan Last 24 Hours: My Active Orders 08/11/20 12:23 DME for Discharge [COMM] Stat
--- NOTE | 2020-08-11 12:47 | CR ---
PROCEDURE INFORMATION: Exam: XR Right Humerus Exam date and time: 08/11/2020 12:19 PM Age: 70 years old Clinical indication: Pain; Shoulder; Right; Additional info: Fall, pain right proximal humerus TECHNIQUE: Imaging protocol: XR Right humerus Views: 2 or more views. COMPARISON: No relevant prior studies available. FINDINGS: Bones/joints: A moderately offset and angulated fractures present of the proximal humerus approximately 1.5 cm below the surgical neck. There is significant impaction of the fracture fragments. The glenohumeral a greer shift remains in anatomic alignment. Bone mineral density is moderately diminished. Soft tissues: Normal. IMPRESSION: 1. Moderately offset, impacted and angulated proximal humeral fracture.
--- NOTE | 2020-08-11 12:48 | CR ---
PROCEDURE INFORMATION: Exam: XR Right Shoulder Exam date and time: 08/11/2020 12:31 PM Age: 70 years old Clinical indication: Pain; Shoulder; Right; Additional info: Fall, pain right proximal humerus TECHNIQUE: Imaging protocol: XR Right shoulder. Views: 2 or more views. COMPARISON: No relevant prior studies available. FINDINGS: Bones/joints: A fractures present involving the proximal humerus. It is angulated, multi component and moderately offset. Mild to moderate grade degenerative changes are noted within the glenohumeral joint. Moderate grade degenerative changes are noted within the acromioclavicular joint. Bone mineral density is diffusely diminished. Soft tissues: Normal. IMPRESSION: 1. Moderately offset and angulated fracture of the proximal humerus.
== END 2020-08-11 13:37 | disposition home or self-care (01) ==
LOC: DL.ED 11:53
DX: S42.291A Other displaced fracture of upper end of right humerus, initial encounter for closed fracture (principal); I48.91 Unspecified atrial fibrillation; I25.10 Atherosclerotic heart disease of native coronary artery without angina pectoris; E78.00 Pure hypercholesterolemia, unspecified; I10 Essential (primary) hypertension; I25.2 Old myocardial infarction; K21.9 Gastro-esophageal reflux disease without esophagitis; E11.9 Type 2 diabetes mellitus without complications; E66.9 Obesity, unspecified; Z68.26 Body mass index [BMI] 26.0-26.9, adult; Z88.5 Allergy status to narcotic agent; Z88.6 Allergy status to analgesic agent; Z88.0 Allergy status to penicillin; Z88.8 Allergy status to other drugs, medicaments and biological substances; Z91.048 Other nonmedicinal substance allergy status; Z91.041 Radiographic dye allergy status; Z79.4 Long term (current) use of insulin; Z79.02 Long term (current) use of antithrombotics/antiplatelets; Z79.899 Other long term (current) drug therapy; Z79.82 Long term (current) use of aspirin; W18.30XA Fall on same level, unspecified, initial encounter; Y92.009 Unspecified place in unspecified non-institutional (private) residence as the place of occurrence of the external cause
CPT/HCPCS: 73030-RT; 73060-RT; 99283-25; 99284

== ENCOUNTER 2020-11-14 16:58 | Emergency (ER) | payer OTHER ==
[2020-11-14 17:09] VITALS: BP 112/58; PULSE 85
--- NOTE | 2020-11-14 18:11 | CR ---
PROCEDURE INFORMATION: Exam: XR Right Hip with Pelvis when Performed Exam date and time: 11/14/2020 5:52 PM Age: 70 years old Clinical indication: Other: Fall/pain; Additional info: Fall from standing; Patient head 'pop' in hip TECHNIQUE: Imaging protocol: XR Right hip with pelvis when performed. Views: 1 view. COMPARISON: No relevant prior studies available. FINDINGS: Bones/joints: Osteoporosis. Basicervical fracture right hip extending into the inter trochanteric region. Degenerative hip disease. Soft tissues: Unremarkable. IMPRESSION: Basicervical fracture right hip extending into the inter trochanteric region.
--- NOTE | 2020-11-14 18:30 | EDM.PDOC ---
ED HPI GENERAL MEDICAL PROBLEM - General Chief Complaint: Lower Extremity Injury/Pain Time Seen by Provider: 11/14/20 17:30 Source of Information: Reports: Patient, RN, RN Notes Reviewed History Limitations: Reports: No Limitations - History of Present Illness INITIAL COMMENTS - FREE TEXT/NARRATIVE: Patient presents to the ED via EMS for complaints of right hip pain. The patient reports she was standing in her shop when someone came up behind her and startled her. She subsequently tipped into a wall of shelving and felt her "..hip pop" while attempting to stand. She attest to pain in her right inferior buttock area which she describes as sharp in character; she rates this pain at a 4/10. She denies LOC during this fall and did not hit her head. She denies loss of motor function to the extremity but does note pain with movement. She has not ambulated on the extremity since the incident. The patient states she pitting edema in her bilateral lower extremities is improved as she was started on Lasix last week. Right Hip Pain Score (Numeric/FACES): 4 - Related Data Allergies Allergy/AdvReac Type Severity Reaction Status Date / Time codeine Allergy Hallucinati Verified 07/07/20 09:31 ons diphenhydramine HCl Allergy Shaking Verified 07/07/20 09:31 [From Benadryl] Penicillins Allergy Rash Verified 07/07/20 09:31 simvastatin [From Zocor] Allergy Cannot Verified 07/07/20 09:31 Remember Ivp dye Allergy Hives Uncoded 07/07/20 09:31 wool Allergy Itching Uncoded 07/07/20 09:31 Home Meds: Home Meds Calcium Citrate/Vitamin D3 [Calcium Citrate - Vit D Caplet] 1 tab PO BID 03/18/14 [History] Clopidogrel Bisulfate [Clopidogrel] 75 mg PO DAILY 03/18/14 [History] Insulin Detemir [Levemir] 35 units SQ PCBREAKFAST 03/18/14 [History] Simvastatin [Zocor] 20 mg PO BEDTIME 03/18/14 [History] Travoprost (Benzalkonium) [Travoprost 0.004% Eye Drop] 1 drop EYEBOTH BEDTIME 03/18/14 [History] Multivitamin with Minerals [Multiple Vitamin] 1 tab PO DAILY 03/13/15 [History] Spironolactone [Aldactone] 25 mg PO DAILY 03/11/17 [History] Ascorbate Calcium [Vitamin C] 500 mg PO BID 04/22/19 [History] [place]/Min Oil/Luz/Wool Alcoh [Eucerin Creme] 0 gm TOP ASDIRECTED PRN 04/22/19 [History] Famotidine [Pepcid] 20 mg PO BID 04/22/19 [History] Fish Oil/[place]-3 Fatty Acids [Fish Oil 1,000 MG] 1 gm PO DAILY 04/22/19 [History] Magnesium Oxide 400 mg PO .HS 04/22/19 [History] Triamcinolone Acetonide [Triamcinolone Acetonide 0.5%] 0 gm TOP ASDIRECTED PRN 04/22/19 [History] Aspirin [Halfprin] 81 mg PO DAILY 07/05/19 [History] Calcium Carbonate [Calcium] 500 mg PO ASDIRECTED PRN 07/05/19 [History] Alogliptin Benzoate [Alogliptin] 25 mg PO DAILY 04/20/20 [History] LORazepam [Ativan] 0.5 mg PO DAILY 04/20/20 [History] metroNIDAZOLE [Metronidazole] 500 mg PO BID 04/20/20 [History] Metoprolol Succinate [Toprol XL] 12.5 mg PO DAILY 08/11/20 [History] ramipriL [Altace] 2.5 mg PO DAILY 08/11/20 [History] traMADol HCl [Tramadol HCl] 50 mg PO Q6H PRN #14 tablet MDD 400 mg 08/11/20 [Rx] Past Medical History HEENT History: Reports: Glaucoma, Impaired Vision Other HEENT History: wears glasses Cardiovascular History: Reports: Afib, Angina, CAD, High Cholesterol, Hyperten zane, [place] Respiratory History: Reports: Other (See Below) Other Respiratory History: allergies and frequenct sinus infections Gastrointestinal History: Reports: GERD Genitourinary History: Reports: UTI, 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 Musculoskeletal History: Reports: Amputation, Other (See Below) Other Musculoskeletal History: right great toe Neurological History: Reports: None Psychiatric History: Reports: None Endocrine/Metabolic History: Reports: Diabetes, Type II, IDDM, Obesity/BMI 30+ Hematologic History: Reports: None Immunologic History: Reports: None Oncologic (Cancer) History: Reports: None Dermatologic History: Reports: Cellulitis - Infectious Disease History Infectious Disease History: Reports: Novel Coronavirus, Other (See Below) Other Infectious Disease History: Acute Hepatitis - Past Surgical History HEENT Surgical History: Reports: Cataract Surgery Cardiovascular Surgical History: Reports: AICD, Coronary Artery Bypass Musculoskeletal Surgical History: Reports: Amputation Social & Family History - Family History Family Medical History: No Pertinent Family History - Tobacco Use Tobacco Use Status *Q: Never Tobacco User Second Hand Smoke Exposure: No - Caffeine Use Caffeine Use: Reports: None - Recreational Drug Use Recreational Drug Use: No - Living Situation & Occupation Living situation: Reports: with Family Occupation: Retired Review of Systems - Review of Systems Review Of Systems: Comprehensive ROS is negative, except as noted in HPI. ED EXAM, GENERAL - Physical Exam Exam: See Below Exam Limited By: No Limitations General Appearance: Alert, WD/WN, No Apparent Distress Neck: Normal Inspection, Supple, Non-Tender, Full Range of Motion Respiratory/Chest: No Respiratory Distress, Lungs Clear, Normal Breath Sounds, No Accessory Muscle Use, Chest Non-Tender Cardiovascular: Normal Peripheral Pulses, Regular Rate, Rhythm, No Gallop, No JVD, Systolic Murmur (Greatest over the aortic area) Peripheral Pulses: 2+: Radial (L), Radial (R), Dorsalis Pedis (L), Dorsalis Pedis (R) Extremities: Normal Capillary Refill, Pedal Edema (+2 pitting edema BLE), Leg Pain (To right inferior buttocks and right groin with palpation), Limited Range of Motion. No: Increased Warmth, Redness Neurological: Alert, Oriented, CN II-XII Intact, Normal Cognition, Normal Gait, No Motor/Sensory Deficits Psychiatric: Normal Affect, Normal Mood Skin Exam: Warm, Dry, Intact, Normal Color. No: Ecchymosis, Erythema, Mottled, Pallor, Petechiae Course - Vital Signs Last Recorded V/S: Last Vital Signs Temp 97.9 F 11/14/20 17:01 Pulse 85 11/14/20 17:01 Resp 18 11/14/20 17:01 BP 112/58 L 11/14/20 17:01 Pulse Ox 98 11/14/20 17:01 - Orders/Labs/Meds Meds: Medications Discontinued Medications Generic Name Dose Route Start Last Admin Trade Name Freq PRN Reason Stop Dose Admin Acetaminophen 650 mg 11/14/20 19:08 Tylenol PO 11/14/20 19:09 NOW ONE - Radiology Interpretation Free Text/Narrative:: [facility] [place] [facility] Final Radiology Report Call: [phone] assistance Online chat: [email or web address] Name: SANDEEP GARCIA Age: 70Years F Date: 11/14/2020 SSN: -- : 1950 Study: CR HIP MIN 1V W PELVIS RT Requesting Physician: Sue Schwartz Images: 2 Addl Studies: Provided Clinical History: Fall from standing; Patient head 'pop' in hip Contrast: Contrast Medium: Contrast Amount: Contrast Method: CONFIDENTIALITY STATEMENT This report is intended only for use by the referring physician, and only in accordance with law. If you received this in error, call [phone]. Page 1 of 1 PROCEDURE INFORMATION: Exam: XR Right Hip with Pelvis when Performed Exam date and time: 11/14/2020 5:52 PM Age: 70 years old Clinical indication: Other: Fall/pain; Additional info: Fall from standing; Patient head 'pop' in hip TECHNIQUE: Imaging protocol: XR Right hip with pelvis when performed. Views: 1 view. COMPARISON: No relevant prior studies available. FINDINGS: Bones/joints: Osteoporosis. Basicervical fracture right hip extending into the inter trochanteric region. Degenerative hip disease. Soft tissues: Unremarkable. IMPRESSION: Basicervical fracture right hip extending into the inter trochanteric region. Thank you for allowing us to participate in the care of your patient. Dictated and Authenticated by: Ryan Christensen MD 11/14/2020 6:11 PM Central Time ([place] & [place]) - Re-Assessments/Exams Free Text/Narrative Re-Assessment/Exam: 11/14/20 Xray revealed fracture of the right hip, basicervical extending into the inter trochanteric region. Case discussed with Dr. Ritter, orthopedic surgeon at [facility] in [place] who agreed to accept the patient for transfer; he will see her tomorrow in-house. Case discussed with Dr. Nguyen at [facility] ED who accepted to patient for transfer for inpatient admission. Care of plan discussed with patient who verbalized understanding and agreement with the plan of care. Departure - Departure Time of Disposition: 19:19 Disposition: DC/Tfer to Acute Hospital 02 Condition: Good Clinical Impression: Intertrochanteric fracture, hip - Discharge Information Forms: ED Department Discharge, Interfacility Transfer YESI Sepsis Event Note (ED) - Evaluation Sepsis Screening Result: No Definite Risk - Focused Exam Vital Signs: Vital Signs Temp Pulse Resp BP Pulse Ox 11/14/20 17:01 97.9 F 85 18 112/58 L 98
[2020-11-14] MEDS ORDERED: Acetaminophen 325 MG Tab PO ONE (19:08)
== END 2020-11-14 19:27 ==
LOC: DL.ED 16:58
DX: S72.141A Displaced intertrochanteric fracture of right femur, initial encounter for closed fracture (principal); I48.91 Unspecified atrial fibrillation; I25.10 Atherosclerotic heart disease of native coronary artery without angina pectoris; E78.00 Pure hypercholesterolemia, unspecified; I10 Essential (primary) hypertension; I25.2 Old myocardial infarction; K21.9 Gastro-esophageal reflux disease without esophagitis; E11.9 Type 2 diabetes mellitus without complications; E66.9 Obesity, unspecified; Z68.31 Body mass index [BMI] 31.0-31.9, adult; Z88.5 Allergy status to narcotic agent; Z88.8 Allergy status to other drugs, medicaments and biological substances; Z88.0 Allergy status to penicillin; Z91.041 Radiographic dye allergy status; Z91.048 Other nonmedicinal substance allergy status; Z79.02 Long term (current) use of antithrombotics/antiplatelets; Z79.4 Long term (current) use of insulin; Z79.899 Other long term (current) drug therapy; W19.XXXA Unspecified fall, initial encounter
CPT/HCPCS: 73501; 99285; A9270; 99284